=== PATIENT | male | born 1955 | race African-American/Black ===

== ENCOUNTER 2019-04-15 13:50 | Outpatient (CLI) | payer MEDICARE, BC, SELFPAY ==
--- NOTE | ~2019-04-15 | XR_ITS ---
EXAMINATION: XR chest 2V EXAM DATE: 04/15/2019 14:11 INDICATION: Cough, chest pain, fever. TECHNIQUE: Frontal and lateral projections of the chest obtained and reviewed. Comparison is made to prior examination from 03/08/2018. FINDINGS: Minimal linear scarring and change. The lungs are otherwise clear. There are no pleural e ffusions. The cardiomediastinal silhouette is within normal limits. There is no pneumothorax suspec michael. The bones and soft tissues are unremarkable. IMPRESSION: No acute cardiopulmonary findings. Reviewed, dictated and finalized at location A. INE OPERATOR PACKAGING
[2019-04-15 14:04] LABS: Hematocrit 45.6 % (37.0-46.0); Mean Corpuscular HGB Conc 32.9 g/dL (32.0-36.0); Mean Corpuscular Hemoglobin 29.6 pg (27.0-31.0); Mean Corpuscular Volume 89.9 fL (78.0-102.0); Mean Platelet Volume 10.2 fl (8.7-11.0); Platelet Count Result 149 K/mm3 (150-420); Red Blood Count 5.07 M/mm3 (4.70-6.10); Red Cell Distribution Width 13.7 % (11.6-14.4); White Blood Count 3.1 K/mm3 (4.8-10.8)
[2019-04-15 14:20] LABS: Alanine Aminotransferase 50 U/L (16-63); Alkaline Phosphatase 73 U/L (46-116); Anion Gap 12.8 mmol/L (7-16); Aspartate Amino Transferase 41 U/L (15-37); Bilirubin,Total 0.6 mg/dL (0.00-1.00); Blood Urea Nitrogen 11 mg/dL (7-18); Calcium 9.3 mg/dL (8.5-10.1); Carbon Dioxide 32 mmol/L (21-32); Chloride 103 mmol/L (98-108); Estimated Glomerular Filt Rate > 60; Glucose 92 mg/dL (70-99); Osmolality Calculated 297 mOsm/kg (285-295); Potassium 3.8 mmol/L (3.5-5.1); Sodium 144 mmol/L (136-145); Total Protein 8.4 g/dL (6.4-8.2)
[2019-04-15 14:22] LABS: Band Neutrophils Percent 0 % (0-6); Lymphocytes Absolute Manual 1.24 K/mm3 (1.1-4.5); Lymphocytes Percent Manual 40 % (18-44); Monocytes Percent Manual 13 % (3-9); Neutrophils Absolute Manual 1.45 K/mm3 (1.3-6.7); Neutrophils Percent Manual 47 % (46-73); Total Cells Counted 100
[2019-04-15 14:23] LABS: Basophils Percent Manual 0 % (0-1); Eosinophils Percent Manual 0 % (1-6)
[2019-04-15 14:25] LABS: Influenza Control Valid (Valid)
[2019-04-15 14:32] LABS: Platelet Estimate Adequate (Adequate)
== END 2019-04-15 13:51 | disposition home or self-care (01) ==
LOC: CHSLAB 13:54
PROVIDERS: PCP Internal Medicine; Visit Provider Internal Medicine
DX: R05 Cough (principal); R50.9 Fever, unspecified
CPT/HCPCS: 71046; 80053; 85025; 87081; 87804; 87880

== ENCOUNTER 2019-07-19 07:21 | Emergency (ER) | payer MEDICARE, BC, SELFPAY ==
[2019-07-19 07:26] VITALS: BP 120/54; PULSE 78; RESP 16; TEMP 37.8; O2SAT 96
--- NOTE | 2019-07-19 08:23 | ED.GENADULT ---
HPI - General Adult General Chief complaint: Urogenital-Male Stated complaint: uti History of Present Illness HPI narrative: Juan Pablo is a 64M with a PMH of HTN, HLD, and BPH that presented to the ED with painful urination and fevers. For 3-4 days he has had dysuria, increased urinary frequency, back pain, nausea and fevers up to 101 and fatigue. He was going much more frequently until this morning when it seems he cannot go any more. Denes CP, SOB, vomiting, syncope, diarrhea and tenesmus. Related Data Home Medications Medication Instructions Recorded Confirmed amlodipine See Rx Instructions .ROUTE .COMPLEX 07/19/19 07/19/19 amoxicillin-pot clavulanate See Rx Instructions .ROUTE .COMPLEX 07/19/19 07/19/19 aspirin [Adult Low Dose Aspirin] 81 mg PO DAILY 07/19/19 07/19/19 rosuvastatin See Rx Instructions .ROUTE .COMPLEX 07/19/19 07/19/19 tadalafil [Cialis] See Rx Instructions .ROUTE .COMPLEX 07/19/19 07/19/19 tamsulosin See Rx Instructions .ROUTE .COMPLEX 07/19/19 07/19/19 Allergies Allergy/AdvReac Type Severity Reaction Status Date / Time No Known Allergies Allergy Verified 07/19/19 08:50 Review of Systems Constitutional: Constitutional: Reports chills, Reports fatigue and Reports fever(s) Eyes: Eyes: Reports no additional eye complaints ENT: Reports system reviewed and no additional complaints, except as documented Cardiovascular: Cardiovascular: Reports no additional cardiovascular complaints Respiratory: Respiratory: Reports no additional respiratory complaints Gastrointestinal: Gastrointestinal: Denies abdominal pain, Reports nausea and Denies vomiting Genitourinary: Genitourinary: Reports as per HPI Musculoskeletal: Musculoskeletal: Reports no additional musculoskeletal complaints Integumentary/Breasts: Skin/Breast: Reports system reviewed and no additional complaints, except as docu Neurologic: Reports system reviewed and no additional complaints, except as documented Psychiatric: Psychiatric: Reports no additional psychiatric complaints Exam Const: General: no acute distress and alert Orientation/consciousness: patient oriented x3 Limitations: No altered mental status HENMT: Other: normocephalic, atraumatic Eyes: Pupils: Equal, round and reactive pupils present EOM: EOMs intact bilaterally Resp: Effort & Inspection: normal respiratory effort Auscultation: clear to auscultation bilaterally Cardio: Rate: regular rate Rhythm: regular rhythm Heart sounds: no murmurs GI: GI Palp: Yes Soft to palpation and No Tenderness to palpation present (GI) : General: Yes no CVA tenderness Other: no suprapubic tenderness Skin: General skin exam: normal color Neuro: General: patient oriented x3 and moves all extremities Extrem: General: normal to inspection Psych: Mental Status: mental status grossly normal Course Course Emergency Course: Ray was seen and evaluated. Labs were ordered as well as a bladder scan. UA was consistent with UTI and CBC showed leukocytosis so he was given ciprofloxacin to treat for UTI or acute prostatitis. He was educated, given return precautions, and discharged with a script for cipro. He was told to stop the Augmentin. Vital Signs Vital signs: Vital Signs Temperature 37.8 C H 07/19/19 07:26 Pulse Rate 78 07/19/19 07:26 Respiratory Rate 16 07/19/19 07:26 Blood Pressure 120/54 L 07/19/19 07:26 Pulse Oximetry 96 07/19/19 07:26 Temperature 37.2 C 07/19/19 09:32 Pulse Rate 88 07/19/19 09:32 Respiratory Rate 16 07/19/19 09:32 Blood Pressure 111/55 L 07/19/19 09:32 Pulse Oximetry 96 07/19/19 07:26 Medical Decision Making Vital Signs Vital Signs: Vital Signs Temperature 37.8 C H 07/19/19 07:26 Pulse Rate 78 07/19/19 07:26 Respiratory Rate 16 07/19/19 07:26 Blood Pressure 120/54 L 07/19/19 07:26 Pulse Oximetry 96 07/19/19 07:26 Temperature 37.2 C 07/19/19 09:32 Pulse Rate 88 07/19/19 09:32 Respirat
[2019-07-19 08:35] LABS: Add Urine Microscopic? YES; Appearance Urine Sl Cloudy (Clear); Bilirubin Urine 1+ (Negative); Blood Urine 2+ (Negative); Color Urine Amber (Yellow); Glucose Urine UA Negative (Negative); Ketones Urine Negative (Negative); Leukocyte Esterase Ur 2+ (Negative); Nitrate Urine Negative (Negative); Protein Urine Trace (Negative); Specific Grav Ur 1.015 (1.010-1.020)
[2019-07-19 08:37] LABS: Basophils Absolute Auto 0.02 K/mm3 (0.00-0.10); Basophils Percent Auto 0.1 % (0.0-1.0); Eosinophils Absolute Auto 0.01 K/mm3 (0.02-0.50); Eosinophils Percent Auto 0.1 % (1.0-6.0); Hemoglobin 14.7 g/dL (12.4-15.3); Immature Granulocyte Absolute 0.12 K/mm3 (0.00-0.00); Immature Granulocyte Percent A 0.9 % (0.0-0.0); Lymphocytes Absolute Auto 1.65 K/mm3 (1.10-4.50); Lymphocytes Percent Auto 11.9 % (18.0-42.0); Mean Corpuscular HGB Conc 33.4 g/dL (32.0-36.0); Mean Corpuscular Hemoglobin 29.8 pg (27.0-31.0); Mean Corpuscular Volume 89.2 fL (78.0-102.0); Mean Platelet Volume 10.3 fl (8.7-11.0); Monocytes Absolute Auto 1.11 K/mm3 (0.10-0.90); Platelet Count Result 156 K/mm3 (150-420); Red Blood Count 4.93 M/mm3 (4.70-6.10); Red Cell Distribution Width 14.1 % (11.6-14.4); White Blood Count 13.9 K/mm3 (4.8-10.8)
[2019-07-19 08:47] LABS: Bacteria Urine 3+ /hpf; Squamous Epithelial Cell Urine Few /hpf (Few); WBC Urine 51-75 /hpf (0-3)
[2019-07-19 08:48] LABS: Alanine Aminotransferase 42 U/L (16-63); Albumin Level 3.6 g/dL (3.4-5.0); Alkaline Phosphatase 80 U/L (46-116); Anion Gap 14.5 mmol/L (7-16); Aspartate Amino Transferase 28 U/L (15-37); Bilirubin,Total 1.9 mg/dL (0.00-1.00); Blood Urea Nitrogen 9 mg/dL (7-18); Carbon Dioxide 27 mmol/L (21-32); Chloride 102 mmol/L (98-108); Estimated CRCL calculation 62 ml/min; Estimated Glomerular Filt Rate > 60; Glucose 120 mg/dL (70-99); Osmolality Calculated 289 mOsm/kg (285-295); Potassium 3.5 mmol/L (3.5-5.1); Sodium 140 mmol/L (136-145); Total Protein 7.8 g/dL (6.4-8.2)
[2019-07-19 09:32] VITALS: BP 111/55; PULSE 88; RESP 16; TEMP 37.2
[2019-07-22 08:56] LABS: Prostate Specific Antigen 14.4 ng/mL (< OR = 4.0)
== END 2019-07-19 09:33 | disposition home or self-care (01) ==
PROVIDERS: Emergency Provider Family Medicine; PCP Internal Medicine
DX: N39.0 Urinary tract infection, site not specified (principal); I10 Essential (primary) hypertension; E78.5 Hyperlipidemia, unspecified; N40.0 Benign prostatic hyperplasia without lower urinary tract symptoms; R11.0 Nausea; R50.9 Fever, unspecified
CPT/HCPCS: 36415; 80053; 81001; 84153; 85025; 87040; 87086; 99283

== ENCOUNTER 2019-08-01 08:13 | Outpatient (CLI) | payer MEDICARE, SELFPAY ==
[2019-08-01 08:25] LABS: Basophils Absolute Auto 0.03 K/mm3 (0.00-0.10); Basophils Percent Auto 0.4 % (0.0-1.0); Eosinophils Absolute Auto 0.06 K/mm3 (0.02-0.50); Eosinophils Percent Auto 0.8 % (1.0-6.0); Hematocrit 43.4 % (37.0-46.0); Hemoglobin 14.2 g/dL (12.4-15.3); Immature Granulocyte Absolute 0.04 K/mm3 (0.00-0.00); Immature Granulocyte Percent A 0.5 % (0.0-0.0); Lymphocytes Absolute Auto 2.33 K/mm3 (1.10-4.50); Lymphocytes Percent Auto 30.6 % (18.0-42.0); Mean Corpuscular HGB Conc 32.7 g/dL (32.0-36.0); Mean Corpuscular Hemoglobin 28.8 pg (27.0-31.0); Mean Platelet Volume 9.2 fl (8.7-11.0); Monocytes Absolute Auto 0.56 K/mm3 (0.10-0.90); Monocytes Percent Auto 7.3 % (2.0-11.0); Neutrophils Absolute Auto 4.6 K/mm3 (1.7-7.2); Neutrophils Percent Auto 60.4 % (50.0-70.0); Platelet Count Result 327 K/mm3 (150-420); Red Blood Count 4.93 M/mm3 (4.70-6.10); Red Cell Distribution Width 14.6 % (11.6-14.4); White Blood Count 7.6 K/mm3 (4.8-10.8)
[2019-08-01 08:34] LABS: Add Urine Microscopic? NO; Appearance Urine Clear (Clear); Bilirubin Urine Negative (Negative); Blood Urine Negative (Negative); Color Urine Yellow (Yellow); Glucose Urine UA Negative (Negative); Ketones Urine Negative (Negative); Leukocyte Esterase Ur Negative (Negative); Nitrate Urine Negative (Negative); Protein Urine Negative (Negative); Specific Grav Ur >= 1.030 (1.010-1.020); Urobilinogen Urine 0.2 mg/dL (0.2-1.0); pH Urine 5.5 (5.0-8.0)
[2019-08-01 09:36] LABS: Anion Gap 9.1 mmol/L (7-16); Blood Urea Nitrogen 15 mg/dL (7-18); Calcium 9.1 mg/dL (8.5-10.1); Carbon Dioxide 30 mmol/L (21-32); Chloride 105 mmol/L (98-108); Estimated Glomerular Filt Rate > 60; Glucose 97 mg/dL (70-99); Osmolality Calculated 290 mOsm/kg (285-295); Potassium 4.1 mmol/L (3.5-5.1); Prostate Specific Antigen 3.6 ng/mL (< OR = 4.0); Sodium 140 mmol/L (136-145)
== END 2019-08-01 08:14 | disposition home or self-care (01) ==
LOC: CHSLAB 08:15
PROVIDERS: PCP Internal Medicine; Visit Provider Internal Medicine
DX: N41.9 Inflammatory disease of prostate, unspecified (principal)
CPT/HCPCS: 36415; 80048; 81003; 84153; 85025; 87086

== ENCOUNTER 2020-03-30 13:42 | Outpatient (CLI) | payer MEDICARE, BC, SELFPAY ==
--- NOTE | ~2020-03-30 | XR_ITS ---
EXAMINATION: XR lg joint inject/asp add DATE: 03/30/2020 15:16 INDICATION: Left shoulder pain. TECHNIQUE: A time-out was performed to verify the patient's name, date of , and procedure to b e performed. The procedure including the risks, benefits, and alternatives was discussed with the pat ient. Risks discussed included bleeding and infection. The patient understood the risks and agreed to proceed. The skin overlying the left acromioclavicular joint was prepped and draped in usual steril e fashion. Anesthetic was administered with 1% lidocaine subcutaneously. A 23 G needle was advanced under fluoroscopic guidance into the joint. Subsequently, injectate consisting of 0.5 mL 1% lidocain e and 1.0 mL 40 mg/mL Kenalog was instilled. The needle was removed and the entry site was cleaned a nd dressed. There were no immediate complications. Fluoroscopy exposure time was 0.1 minutes. The to gayatri number of images was 1. FINDINGS: Real-time fluoroscopy demonstrates the needle in the left acromioclavicular joint. Patient' s pain prior to procedure:09/04. Patient's pain following the procedure: 07/05. IMPRESSION: 1. Fluoroscopy guided left acromioclavicular joint injection of local anesthetic and steroid with dec rease in the patient's presenting pain. Reviewed, dictated and finalized at location A. R PRESS OPERATOR IMPRESSION: 1. Fluoroscopy guided left acromioclavicular joint injection of local anestheti c and steroid with decrease in the patient's presenting pain.
--- NOTE | ~2020-03-30 | XR_ITS ---
EXAMINATION: XR lg joint inject/asp w image DATE: 03/30/2020 15:14 INDICATION: Right shoulder pain. TECHNIQUE: A time-out was performed to verify the patient's name, date of , and procedure to b e performed. The procedure including the risks, benefits, and alternatives was discussed with the pat ient. Risks discussed included bleeding and infection. The patient understood the risks and agreed to proceed. The skin overlying the right acromioclavicular joint was prepped and draped in usual steri le fashion. Anesthetic was administered with 1% lidocaine subcutaneously. A 23 G needle was advance d under fluoroscopic guidance into the joint. Subsequently, injectate consisting of 0.5 mL 1% lidoca ine and 1.0 mL 40 mg/mL Kenalog was instilled. The needle was removed and the entry site was cleaned and dressed. There were no immediate complications. Fluoroscopy exposure time was 0.1 minutes. The total number of images was 1. FINDINGS: Real-time fluoroscopy demonstrates the needle in the right acromioclavicular joint. Patient 's pain prior to procedure:09/04. Patient's pain following the procedure: 07/05. IMPRESSION: 1. Right acromioclavicular joint injection of local anesthetic and steroid with decrease in the patie nt's presenting pain. Reviewed, dictated and finalized at location A. PAPER SCRAPER IMPRESSION: 1. Right acromioclavicular joint injection of local anesthetic and steroid with decrease in the patient's presenting pain.
== END 2020-03-30 13:43 | disposition home or self-care (01) ==
PROVIDERS: Family Provider Internal Medicine; PCP Internal Medicine; Visit Provider Internal Medicine
DX: M25.512 Pain in left shoulder (principal); M25.511 Pain in right shoulder
CPT/HCPCS: 20610; 77002; J3301

== ENCOUNTER 2020-04-12 07:41 | Outpatient (CLI) | payer MEDICARE, BC, SELFPAY ==
--- NOTE | ~2020-04-12 | US_ITS ---
EXAMINATION: US aorta [facility] DATE: 04/12/2020 08:08 INDICATION: Abdominal aortic aneurysm TECHNIQUE: Grayscale, color Doppler, and pulsed Doppler images of the aorta and common iliac arteries were obtained. COMPARISON: CT, 04/19/2018 FINDINGS: Maximum vascular dimensions are as follows: Proximal aorta: 2.5 cm Mid aorta: 2.5 cm Distal aorta: 2.2 cm Right common iliac artery: 1.2 cm Left common iliac artery: 1.3 cm There is no evidence of abdominal aortic aneurysm. 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 No sonographic evidence of abdominal aortic aneurysm. Reviewed, dictated and finalized at location A. ENER HELPER
== END 2020-04-12 07:42 | disposition home or self-care (01) ==
LOC: CHSIMG 07:44
PROVIDERS: PCP Internal Medicine; Visit Provider Internal Medicine Cardiovascular Disease
DX: Z13.6 Encounter for screening for cardiovascular disorders (principal)
CPT/HCPCS: 76706

== ENCOUNTER 2020-05-17 11:37 | Outpatient (CLI) | payer MEDICARE, BC, SELFPAY ==
--- NOTE | ~2020-05-17 | XR_ITS ---
XR elbow LT min 3V DATE: 05/17/2020 12:02 INDICATION: Posterior elbow pain for one day. No injury. TECHNIQUE: 4 views COMPARISON: None FINDINGS: There is minimal dorsal spurring of the olecranon process. There is spurring of the coronoi d process. No fracture or dislocation or joint effusion. No periosteal reaction or bone destruction. IMPRESSION: Minimal dorsal spurring of the olecranon process Coronoid process spurring No fracture or dislocation or bone destruction or joint effusion Reviewed, dictated and finalized at location B.
[2020-05-17 11:48] LABS: Basophils Absolute Auto 0.03 K/mm3 (0.00-0.10); Basophils Percent Auto 0.5 % (0.0-1.0); Eosinophils Absolute Auto 0.04 K/mm3 (0.02-0.50); Eosinophils Percent Auto 0.6 % (1.0-6.0); Hemoglobin 14.8 g/dL (12.4-15.3); Immature Granulocyte Absolute 0.02 K/mm3 (0.00-0.00); Immature Granulocyte Percent A 0.3 % (0.0-0.0); Lymphocytes Absolute Auto 2.66 K/mm3 (1.10-4.50); Mean Corpuscular HGB Conc 32.9 g/dL (32.0-36.0); Mean Corpuscular Hemoglobin 29.8 pg (27.0-31.0); Mean Corpuscular Volume 90.7 fL (78.0-102.0); Mean Platelet Volume 9.9 fl (8.7-11.0); Monocytes Absolute Auto 0.51 K/mm3 (0.10-0.90); Monocytes Percent Auto 7.9 % (2.0-11.0); Neutrophils Absolute Auto 3.2 K/mm3 (1.7-7.2); Neutrophils Percent Auto 49.7 % (50.0-70.0); Platelet Count Result 187 K/mm3 (150-420); Red Blood Count 4.96 M/mm3 (4.70-6.10); Red Cell Distribution Width 13.6 % (11.6-14.4); White Blood Count 6.5 K/mm3 (4.8-10.8)
[2020-05-17 13:06] LABS: Alanine Aminotransferase 46 U/L (16-63); Albumin Level 4.2 g/dL (3.4-5.0); Alkaline Phosphatase 77 U/L (46-116); Anion Gap 9 mmol/L (8-16); Aspartate Amino Transferase 39 U/L (15-37); Bilirubin,Total 1.3 mg/dL (0.00-1.00); Blood Urea Nitrogen 16 mg/dL (7-18); Calcium 9.3 mg/dL (8.5-10.1); Carbon Dioxide 31 mmol/L (21-32); Chloride 102 mmol/L (98-108); Estimated Glomerular Filt Rate > 60; Glucose 88 mg/dL (70-99); Osmolality Calculated 294 mOsm/kg (285-295); Potassium 4.5 mmol/L (3.5-5.1); Sodium 142 mmol/L (136-145); Total Protein 7.6 g/dL (6.4-8.2)
[2020-05-17 14:29] LABS: CRP < 0.5 mg/dL (0.0-0.9)
[2020-05-19 20:03] LABS: Hepatitis A Antibody IgM Nonreactive; Hepatitis B Core Antibody Nonreactive (Nonreactive); Hepatitis B Surface Antigen Nonreactive (Nonreactive); Hepatitis C Signal to Cutoff 0.01 ratio (<1.00); Hepatitis C Virus Antibody Nonreactive (Nonreactive)
== END 2020-05-17 11:38 | disposition home or self-care (01) ==
LOC: CHSLAB 11:38
PROVIDERS: PCP Internal Medicine; Visit Provider Nurse Practitioner Family
DX: M25.522 Pain in left elbow (principal); R94.5 Abnormal results of liver function studies
CPT/HCPCS: 36415; 73080; 80053; 80074; 84550; 85025; 86140

== ENCOUNTER 2020-05-24 08:12 | Outpatient (CLI) | payer MEDICARE, BC, SELFPAY ==
--- NOTE | ~2020-05-24 | US_ITS ---
US right upper quadrant INDICATION: Elevated liver enzymes PROCEDURE: Realtime right upper abdominal ultrasound. COMPARISON: CT dated 05/17/2018 FINDINGS: The pancreas is unremarkable, although not well visualized. There is a 1 cm cyst of the ri ght hepatic lobe. No solid masses. There is normal directional flow in the portal vein. The gallbladder is normal without stones, gallbladder wall thickening or pericholecystic fluid. Comm on bile duct measures 3 mm. No sonographic Ying's sign. IMPRESSION: 1: Liver cyst. Otherwise, unremarkable limited abdominal ultrasound. Reviewed, dictated and finalized at location B.
[2020-05-24 08:47] LABS: Hemoglobin A1C 5.8 % (<5.7)
[2020-05-24 09:01] LABS: Appearance Urine Clear (Clear); Bilirubin Urine Negative (Negative); Color Urine Yellow (Yellow); Glucose Urine UA Negative (Negative); Ketones Urine Negative (Negative); Leukocyte Esterase Ur Negative (Negative); Nitrate Urine Negative (Negative); Protein Urine Negative (Negative); pH Urine 6.5 (5.0-8.0)
[2020-05-24 09:14] LABS: Add Urine Microscopic? YES; Bacteria Urine None seen /hpf; Blood Urine Trace-Intact (Negative); Squamous Epithelial Cell Urine Rare /hpf (Few); WBC Urine None seen /hpf (0-3)
[2020-05-24 10:07] LABS: Creatinine Urine 193.63 mg/dL (40-278); MALB Creatinine Ratio 32.7 mg/g (0-30); Microalbumin Urine Random 63.5 mg/L
[2020-05-24 10:21] LABS: Alanine Aminotransferase 47 U/L (16-63); Alkaline Phosphatase 75 U/L (46-116); Anion Gap 6 mmol/L (8-16); Aspartate Amino Transferase 34 U/L (15-37); Blood Urea Nitrogen 12 mg/dL (7-18); Carbon Dioxide 31 mmol/L (21-32); Chloride 103 mmol/L (98-108); Cholesterol 140 mg/dL (0-200); Estimated Glomerular Filt Rate > 60; Glucose 98 mg/dL (70-99); HDL Direct 52 mg/dL (40-60); LDL Cholesterol Calculated 78 mg/dL (<130); Osmolality Calculated 289 mOsm/kg (285-295); Potassium 4.1 mmol/L (3.5-5.1); Sodium 140 mmol/L (136-145); Total Protein 7.3 g/dL (6.4-8.2); Triglycerides 52 mg/dL (0-150)
[2020-05-24 10:22] LABS: Creatine Kinase 1167 U/L (39-308)
== END 2020-05-24 08:13 | disposition home or self-care (01) ==
LOC: CHSIMG 08:15
PROVIDERS: PCP Internal Medicine; Visit Provider Nurse Practitioner Family
DX: R94.5 Abnormal results of liver function studies (principal); R73.01 Impaired fasting glucose; E78.2 Mixed hyperlipidemia; I10 Essential (primary) hypertension; R31.9 Hematuria, unspecified
CPT/HCPCS: 36415; 76705; 80053; 80061; 81001; 82043; 82550; 83036; 87086

== ENCOUNTER 2020-10-19 14:43 | Outpatient (CLI) | payer MEDICARE, BC, SELFPAY ==
--- NOTE | ~2020-10-19 | US_ITS ---
EXAMINATION: US venous doppler LE RT EXAM DATE: 10/19/2020 15:06 INDICATION: Right leg edema. TECHNIQUE: Multiple grayscale, color flow and Doppler images of the right lower extremity deep venous system were obtained and reviewed. Comparison is made to prior examination from 09/03/2017. FINDINGS: The right common femoral, femoral and profunda veins demonstrate normal color flow, respira tory variation, augmentation and compressibility. Compressibility, color flow confirmed within the r ight popliteal, posterior tibial, peroneal, and greater saphenous veins. IMPRESSION: 1. No right lower extremity deep venous thrombosis. Reviewed, dictated and finalized at location A.
== END 2020-10-19 14:44 | disposition home or self-care (01) ==
LOC: CHSIMG 14:45
PROVIDERS: PCP Internal Medicine; Visit Provider Internal Medicine
DX: R60.9 Edema, unspecified (principal)
CPT/HCPCS: 93971

== ENCOUNTER 2020-11-15 07:21 | Outpatient (CLI) | payer MEDICARE, BC, SELFPAY ==
--- NOTE | 2020-11-15 09:00 | EST_ITS ---
Patient Info Name: Juan Pablo Claudio Age: 65 years : 1955 Gender: Male Ht: 77 in Wt: 245 lbs BSA: 2.47 m2 HR: 52 bpm BP: 135 / 90 mmHg Heart Rhythm: Bradycardia Technical Quality: Excellent Exam Date: 11/15/2020 8:54 AM Exam Location: [facility] Patient Status: Outpatient Admit Date: 11/15/2020 Staff Ordering Physician: Dean, Aura Kay APRN Attending Provider: Dean, Aura Kay APRN Exercise Technologist: Nadine Quinonez CRT Exercise Physician: Karyn Ward CEP Exam Type: CA stress jhoana w NM Study Info Indications SOB - Fatigue - CP - A nuclear stress test was performed. History/Risk Factors Hypertension: Yes Dyslipidemia: Yes Tobacco Use: Current - Every Day Dialysis: None History/Risk Factors Previous ischemia noted. Current Smoker. Hypertension. Dyslipidemia. Summary 1. 1. Negative Lexiscan stress test for ischemic ST changes by ECG criteria. 2. 2. Stable hemodynamics throughout the test. 3. 3. Nuclear scan to follow and will be reported separately. Please correlate with it. Protocol: LEXISCAN Stress ECG Details Stage: REST Duration (min): 2 min : 33 sec HR (bpm): 53 SBP (mmHg): 135 DBP (mmHg): 90 Stage: REST Duration (min): 6 min : 5 sec HR (bpm): 52 SBP (mmHg): 135 DBP (mmHg): 90 Stage: STAGE 1 Duration (min): 0 min : 13 sec HR (bpm): 53 SBP (mmHg): 135 DBP (mmHg): 90 Stage: RECOVERY Duration (min): 0 min : 46 sec HR (bpm): 60 SBP (mmHg): 135 DBP (mmHg): 90 Stage: RECOVERY Duration (min): 1 min : 46 sec HR (bpm): 66 SBP (mmHg): 135 DBP (mmHg): 90 Stage: RECOVERY Duration (min): 2 min : 46 sec HR (bpm): 66 SBP (mmHg): 129 DBP (mmHg): 68 Stage: RECOVERY Duration (min): 3 min : 46 sec HR (bpm): 62 SBP (mmHg): 129 DBP (mmHg): 68 Stage: RECOVERY Duration (min): 4 min : 46 sec HR (bpm): 62 SBP (mmHg): 131 DBP (mmHg): 79 Stage: RECOVERY Duration (min): 5 min : 46 sec HR (bpm): 61 SBP (mmHg): 131 DBP (mmHg): 79 Stage: RECOVERY Duration (min): 6 min : 7 sec HR (bpm): 59 SBP (mmHg): 128 DBP (mmHg): 78 Rest HR: 52 bpm Peak HR: 69 bpm Rest Sys BP: 135 mmHg Peak Sys BP: 131 mmHg Max Pred HR: 153 bpm % Max Pred HR: 45 % Target HR: 130 bpm Max RPP: 9,039 bpm*mmHg Termination Reason: Completed Protocol Cardiac Symptoms: None Total Time: 0 min : 13 sec Rest Gillis BP: 90 mmHg Peak Gillis BP: 79 mmHg Total Dose: 0.4 mg Resting ECG Sinus rhythm with first degree AV block, borderline T wave abnormality in high lateral leads. Stress ECG No ST changes. Arrhythmias None. Report Signatures
--- NOTE | 2020-11-15 13:08 | WPDCARIOSTRE ---
Nuclear Stress Test INDICATIONS Indications: Dyspnea PROCEDURE Procedure Performed: Myocardial Perf Spect-Multi Procedure: Patient underwent a lexiscan stress test and immediately after was injected with 30.0 mCi of cardiolyte. Multiple tomographic images are obtained. These are of good quality. There is no evidence of decrease perfusion with stress imaging. A separate resting images were obtained after patient was injected with 10.4 mCi of cardiolyte. Multiple tomographic images were obtained. These are of good quality. There is no evidence of decrease perfusion with rest imaging. CONCLUSION Conclusion: 1. Normal myocardial perfusion imaging demonstrating no perfusion defects with stress or rest imaging. 2. Left ventriculogram demonstrates normal measured ejection fraction of 54%. 3. The left ventricle is moderately dilated at 154 ml. No wall motion abnormalities. 4. TID score is normal at 1.17.
== END 2020-11-15 07:22 | disposition home or self-care (01) ==
LOC: CHSIMG 07:22
PROVIDERS: PCP Internal Medicine; Visit Provider Internal Medicine Cardiovascular Disease
DX: I25.10 Atherosclerotic heart disease of native coronary artery without angina pectoris (principal); R06.02 Shortness of breath; R53.83 Other fatigue
CPT/HCPCS: 78452; 93017; A9502; J2785

== ENCOUNTER 2020-11-30 16:15 | Outpatient (CLI) | payer MEDICARE, BC, SELFPAY ==
--- NOTE | ~2020-11-30 | XR_ITS ---
EXAMINATION: XR chest 2V DATE: 11/30/2020 17:06 INDICATION: Cough. Dyspnea. TECHNIQUE: Frontal and lateral views of the chest were obtained on 4 radiographs. COMPARISON: Chest 2 views 04/15/2019 FINDINGS: There is mild atelectasis versus scarring in the lower lung zones. No pleural effusion or p neumothorax. The heart size is normal. IMPRESSION: 1. Mild atelectasis versus scarring in the lower lung zones. Reviewed, dictated and finalized at location A.
[2020-11-30 16:36] LABS: Basophils Absolute Auto 0.02 K/mm3 (0.00-0.10); Basophils Percent Auto 0.3 % (0.0-1.0); Eosinophils Absolute Auto 0.06 K/mm3 (0.02-0.50); Eosinophils Percent Auto 0.9 % (1.0-6.0); Hematocrit 43.7 % (37.0-46.0); Hemoglobin 14.4 g/dL (12.4-15.3); Immature Granulocyte Absolute 0.01 K/mm3 (0.00-0.00); Immature Granulocyte Percent A 0.2 % (0.0-0.0); Lymphocytes Absolute Auto 2.65 K/mm3 (1.10-4.50); Lymphocytes Percent Auto 40.5 % (18.0-42.0); Mean Corpuscular Hemoglobin 29.6 pg (27.0-31.0); Mean Corpuscular Volume 89.9 fL (78.0-102.0); Mean Platelet Volume 9.4 fl (8.7-11.0); Monocytes Absolute Auto 0.48 K/mm3 (0.10-0.90); Monocytes Percent Auto 7.3 % (2.0-11.0); Neutrophils Absolute Auto 3.3 K/mm3 (1.7-7.2); Neutrophils Percent Auto 50.8 % (50.0-70.0); Platelet Count Result 194 K/mm3 (150-420); Red Blood Count 4.86 M/mm3 (4.70-6.10); Red Cell Distribution Width 13.6 % (11.6-14.4); White Blood Count 6.6 K/mm3 (4.8-10.8)
[2020-11-30 16:52] LABS: Alanine Aminotransferase 45 U/L (16-63); Alkaline Phosphatase 76 U/L (46-116); Anion Gap 8 mmol/L (8-16); Aspartate Amino Transferase 33 U/L (15-37); Blood Urea Nitrogen 11 mg/dL (7-18); Calcium 9.2 mg/dL (8.5-10.1); Carbon Dioxide 32 mmol/L (21-32); Chloride 105 mmol/L (98-108); Estimated Glomerular Filt Rate > 60; Glucose 94 mg/dL (70-99); NT Pro B Type Natriuretic Pept 30 pg/mL (0-125); Osmolality Calculated 299 mOsm/kg (285-295); Potassium 3.8 mmol/L (3.5-5.1); Sodium 145 mmol/L (136-145); Total Protein 7.5 g/dL (6.4-8.2)
== END 2020-11-30 16:16 | disposition home or self-care (01) ==
LOC: CHSLAB 16:17
PROVIDERS: PCP Internal Medicine; Visit Provider Internal Medicine
DX: R05.9 Cough, unspecified (principal); R06.00 Dyspnea, unspecified
CPT/HCPCS: 36415; 71046; 80053; 83880; 85025; 85380

== ENCOUNTER 2020-12-15 06:51 | Outpatient (CLI) | payer MEDICARE, BC, SELFPAY ==
--- NOTE | ~2020-12-15 | MR_ITS ---
EXAMINATION: MR femur RT wo con DATE: 12/15/2020 08:01 INDICATION: Acute right hamstring tear with one week of posterior right leg pain TECHNIQUE: Magnetic resonance imaging (MRI) of the right thigh/femur was performed without intravenou s contrast. Sequences included axial, sagittal and coronal T1-weighted FSE and fluid sensitive FSE ST IR. The contralateral left thigh is included on the coronal images. COMPARISON: None. FINDINGS: There is epimysial and feathery intramuscular edema associated with a partial tear within the distal right semimembranosus muscle. The region of edema extends over approximately 15 cm craniocaudal dista nce. There is mild architectural distortion of some of the muscle fibers in this region but no eviden t retracted tear margin or homogeneous fluid signal intensity tear defect appreciated. The region of architectural distortion involves a relatively small portion of the cross-sectional area of the muscl e at this level. Remaining musculature of the right thigh appears normal and symmetric with the contr alateral left thigh. Mild tendinopathy without discrete tear at the distal right gluteus medius. At l east mild osteoarthritis at the partially visualized right hip with no right hip joint effusion. The right knee joint is excluded from the itspz-sy-ydce. Normal bone marrow signal throughout. No fractur e or pathologic marrow replacing process. No pathologically enlarged lymphadenopathy in the right rajendra in or visualized inferior right hemipelvis. IMPRESSION: 1. Moderate grade strain/partial tear of the distal right semimembranosus muscle. Reviewed, dictated and finalized at location A. IMPRESSION: 1. Moderate grade strain/partial tear of the distal right semimembranosus muscl e.
== END 2020-12-15 06:52 | disposition home or self-care (01) ==
LOC: CHSIMG 06:53
PROVIDERS: PCP Internal Medicine; Visit Provider Internal Medicine
DX: S76.811A Strain of other specified muscles, fascia and tendons at thigh level, right thigh, initial encounter (principal)
CPT/HCPCS: 73718

== ENCOUNTER 2021-01-17 09:35 | Outpatient (CLI) | payer MEDICARE, BC, SELFPAY ==
--- NOTE | ~2021-01-17 | CT_ITS ---
EXAMINATION:CT lung screening DATE: 01/17/2021 10:20 INDICATION: Personal history of nicotine dependence. Current smoker with 48 pack year history. TECHNIQUE: Computed tomography (CT) of the chest was performed without intravenous contrast. Automate d exposure control and iterative reconstruction technique were employed. The dose-length product (DLP ) was 204.64 mGy-cm. COMPARISON: Chest CT 04/11/2018 FINDINGS: There is mild emphysema. There is mild scarring in paraspinal right lower lobe. Again seen is a 5 mm nodule at left lung apex. There is a chronic 3 mm nodule in right upper lobe. Again seen is a 5 mm nodule at minor fissure. There is mild atelectasis bilaterally. No pleural effusion. The hear t size is normal. There are coronary artery calcifications. No pericardial effusion. There is bilater al gynecomastia. There is an 8 mm cyst in the liver. There is moderate thoracic spondylosis. IMPRESSION: 1. Lung-RADS category 2: Benign appearance or behavior. Continue annual screening with noncontrast lo w-dose chest CT in 12 months. Reviewed, dictated and finalized at location B. WIRE FABRIC MACHINE OPERATOR IMPRESSION: 1. Lung-RADS category 2: Benign appearance or behavior. Continue annual screeni ng with noncontrast low-dose chest CT in 12 months.
== END 2021-01-17 09:36 | disposition home or self-care (01) ==
PROVIDERS: PCP Internal Medicine; Visit Provider Internal Medicine
DX: Z12.2 Encounter for screening for malignant neoplasm of respiratory organs (principal); Z87.891 Personal history of nicotine dependence
CPT/HCPCS: 71271

== ENCOUNTER 2021-09-05 10:17 | Emergency (ER) | payer MEDICARE, BC, SELFPAY ==
--- NOTE | ~2021-09-05 | CT_ITS ---
EXAMINATION: CT lumbar spine wo con DATE: 09/05/2021 11:07 INDICATION: Low back pain. Coccygeal pain. Fall. TECHNIQUE: Computed tomography (CT) of the lumbar spine was performed without intravenous contrast. A utomated exposure control and iterative reconstruction technique were employed. The dose-length produ ct was 1609.68 mGy-cm. COMPARISON: CT abdomen and pelvis 04/19/2018 FINDINGS: The inferior poles of the kidneys are fused across the midline (horseshoe kidney). There is mild osteoarthritis of the hips. There is 3 degrees dextrocurvature of lumbar spine. Vertebral body heights are normal. There is mildly decreased disc height at L3-L4 and L5-S1 and moderately decreased disc height at L4-L5. The following disc levels are specifically discussed: L1-L2: The disc is bulging. There is mild bilateral facet joint osteoarthritis. There is mild bilater al neural foraminal stenosis. There is no central canal stenosis. L2-L3: The disc is bulging. There is mild bilateral facet joint osteoarthritis. There is mild bilater al neural foraminal stenosis. There is mild central canal stenosis. L3-L4: The disc is bulging. There is moderate bilateral facet joint osteoarthritis. There is moderate bilateral neural foraminal stenosis. There is moderate central canal stenosis. L4-L5: The disc is bulging. There is severe bilateral facet joint osteoarthritis. There is moderate b ilateral neural foraminal stenosis. There is mild central canal stenosis. There are changes of terminal supervisor ior decompression. L5-S1: The disc is bulging. There is mild bilateral facet joint osteoarthritis. There is moderate venkata ateral neural foraminal stenosis. There is mild central canal stenosis. There are changes of posterio r decompression. IMPRESSION: 1. No fracture. 2. Moderate lumbar spondylosis. Reviewed, dictated and finalized at location A.
[2021-09-05 10:20] VITALS: BP 147/79; PULSE 67; RESP 18; TEMP 36.6; O2SAT 98
--- NOTE | 2021-09-05 10:36 | ED.BACK ---
HPI - Back Pain/Injury General Chief Complaint: Back Pain/Injury Stated Complaint: back pain Time Seen by Provider: 09/05/21 10:36 History of Present Illness HPI Narrative: 66-year-old male with a history of Hypertension, dyslipidemia, BPH, back surgery fell 1 week ago and fell on his tailbone. Subsequently he has developed -- low back pain in the lumbar region with radiation to both buttocks and posterior thighs. -- No fever. No bladder or bowel involvement. No motor/ sensory loss. MD elicited complaint: back pain, back injury and fall Pertinent past history: back surgery Onset (ago): day(s) ( Fell 7 days ago.) Timing: intermittent Severity: moderate Similar Symptoms Previously: Yes Quality: dull and aching Location: lumbar spine Radiation: buttocks, left upper leg and right upper leg Exacerbating factors: movement Relieving factors: immobilization Associated symptoms: denies other symptoms Work related injury: No Related Data Home Medications Medication Instructions Recorded Confirmed amlodipine 2.5 mg tablet See Rx Instructions .Route .COMPLEX 07/19/19 09/05/21 aspirin 81 mg tablet,delayed 81 mg PO DAILY 07/19/19 09/05/21 release (Adult Low Dose Aspirin) rosuvastatin 10 mg tablet See Rx Instructions .Route .COMPLEX 07/19/19 09/05/21 tadalafil 5 mg tablet (Cialis) See Rx Instructions .Route .COMPLEX 07/19/19 09/05/21 tamsulosin 0.4 mg capsule See Rx Instructions .Route .COMPLEX 07/19/19 09/05/21 Allergies Allergy/AdvReac Type Severity Reaction Status Date / Time No Known Allergies Allergy Verified 07/19/19 08:50 Review of Systems Review of Systems: All systems reviewed & are unremarkable except as noted in HPI and below Constitutional: Constitutional: Reports as per HPI and Reports no additional constitutional complaints Eyes: Eyes: Reports as per HPI and Reports no additional eye complaints ENT: Reports system reviewed and no additional complaints, except as documented and Reports as per HPI Cardiovascular: Cardiovascular: Reports as per HPI and Reports no additional cardiovascular complaints Respiratory: Respiratory: Reports as per HPI and Reports no additional respiratory complaints Gastrointestinal: Gastrointestinal: Reports as per HPI and Reports no additional gastrointestinal complaints Genitourinary: Genitourinary: Reports no additional male genitourinary complaints and Reports as per HPI Musculoskeletal: Musculoskeletal: Reports no additional musculoskeletal complaints, Reports as per HPI and Reports back pain Comments: pain in lower lumbar region. Integumentary/Breasts: Skin/Breast: Reports system reviewed and no additional complaints, except as docu and Reports as per HPI Neurologic: Reports system reviewed and no additional complaints, except as documented and Reports as per HPI Psychiatric: Psychiatric: Reports no additional psychiatric complaints and Reports as per HPI Endocrine: Endocrine: Reports no additional endocrine complaints and Reports as per HPI Hematologic/Lymphatic: Hematologic/Lymphatic: Reports no additional hematologic/lymphatic complaints and Reports as per HPI Allergic/Immunologic: Allergic/Immunologic: Reports no additional allergic/immunologic complaints and Reports as per HPI [facility] Surgical History Surgical History (Updated 09/05/21 @ 11:24 by Jesus Peterson MD) Previous back surgery Exam Const: General: healthy appearing and no acute distress Nutritional Appearance: well nourished Orientation/consciousness: patient oriented x3 Limitations: no limitations HENMT: Head: normal to inspection Ears: external ears normal General nose exam: Normal external nose present and Normal nares present Face and sinus: normal facial exam and sinuses nontender Mouth: Yes Normal oral and palatal mucosa present and Yes lip normal Throat: posterior oropharynx normal Eyes: Conjunctivae: conjunctivae normal Pupils: Equal, round and reactive pupils present EOM: E
[2021-09-05 11:20] VITALS: BP 139/70; PULSE 61; RESP 14; O2SAT 98
[2021-09-05] MEDS: KETOROLAC 30 MG/ML VIAL (*BKC) IM (12:32)
[2021-09-05 12:35] VITALS: BP 130/69; PULSE 75; RESP 16; TEMP 36.7; O2SAT 99
== END 2021-09-05 12:35 | disposition home or self-care (01) ==
PROVIDERS: Emergency Provider Internal Medicine Critical Care Medicine; PCP Internal Medicine
DX: M47.816 Spondylosis without myelopathy or radiculopathy, lumbar region (principal); M54.50 Low back pain, unspecified; W19.XXXA Unspecified fall, initial encounter
CPT/HCPCS: 72131; 96372; 99284; J1885

== ENCOUNTER 2022-02-06 09:58 | Outpatient (CLI) | payer MEDICARE, BC, SELFPAY ==
--- NOTE | ~2022-02-06 | CT_ITS ---
EXAMINATION: CT lung screening DATE: 02/06/2022 10:15 INDICATION: Personal history of nicotine dependence, current smoker with 49 pack year history TECHNIQUE: Computed tomography (CT) of the chest was performed without intravenous contrast. The dose -length product (DLP) was 227.54 mGy-cm. Automated exposure control and iterative reconstruction tech FOUND[employer] were employed. COMPARISON: 01/17/2021 FINDINGS: There is mild emphysema. There is a 3 mm nodule of the right upper lobe. A 5 mm subpleural nodule is noted in the left lung apex. There is a 5 mm nodule of the minor fissure. The lungs are chris e of acute opacities. No pleural effusion or pneumothorax. No pathologically enlarged thoracic lymph nodes are identified. The heart size is normal. Bilateral gynecomastia is noted. There are coronary a rtery stents and atherosclerosis. There is moderate thoracic spondylosis. IMPRESSION: 1. Lung-RADS category 2: Benign appearance or behavior. Continue annual screening with noncontrast lo w-dose chest CT in 12 months. Reviewed, dictated and finalized at location A. 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 Lung-RADS category 2: Benign appearance or behavior. Continue annual screeni ng with noncontrast low-dose chest CT in 12 months.
== END 2022-02-06 09:59 | disposition home or self-care (01) ==
LOC: CHSIMG 09:59
PROVIDERS: PCP Internal Medicine; Visit Provider Internal Medicine
DX: Z12.2 Encounter for screening for malignant neoplasm of respiratory organs (principal); Z87.891 Personal history of nicotine dependence
CPT/HCPCS: 71271

== ENCOUNTER 2022-04-17 11:34 | Emergency (ER) | payer MEDICARE, BC, SELFPAY ==
[2022-04-17] VITALS (15 sets, daily range): BP systolic 116–144; BP diastolic 68–89; PULSE 54–62; RESP 11–19; TEMP 36.6; O2SAT 96–98
--- NOTE | ~2022-04-17 | XR_ITS ---
EXAMINATION: XR chest 1V portable 04/17/2022 12:27 INDICATION: Midsternal chest pain PROCEDURE: AP portable chest COMPARISON: Comparison to multiple prior studies sequentially, with oldest reviewed study dated 06/2016. FINDINGS: The lungs are clear. The cardiomediastinal silhouette is within normal limits. There are no pleural effusions. There is no pneumothorax suspected. IMPRESSION: 1: NO ACUTE CARDIOPULMONARY DISEASE. Reviewed, dictated and finalized at location B. 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
--- NOTE | 2022-04-17 11:47 | ED.CHESTPAIN ---
HPI - Chest Pain General Chief Complaint: Chest Pain Stated Complaint: chest pain Time Seen by Provider: 04/17/22 11:47 Source: patient Mode of arrival: ambulatory Limitations: no limitations History of Present Illness HPI narrative: 66 year male, smoker with a history of hypertension, dyslipidemia, emphysema, BPH, coronary artery disease status post stents in 2016,negative stress test on 11/15/2020 with an EF of 54% presents to the ER with a 3 week history of -- right-sided chest pain going across his entire chest for the last 3 weeks. Pain is unprovoked. No nausea/ vomiting. his current pain level is 0. -- Intermittent shortness of breath with decreased exercise capacity -- numbness and tingling of his hands -- decreased motivation to do things. MD complaint: chest pain Pertinent past history: coronary artery disease Onset (ago): week(s) ( started 3 weeks ago) Timing of current episode: episodic Prior episodes: Yes Onset: during rest Pain location: left chest and right chest Severity: mild Pain scale (0-10): 3 Quality: aching Relieving factors: nothing Exacerbating factors: nothing Associated symptoms: dyspnea Risk Factors Coronary artery disease risk factors: smoking history, hyperlipidemia and hypertension Thoracic aortic dissection risk factors: longstanding hypertension Related Data Home Medications Medication Instructions Recorded Confirmed amlodipine 2.5 mg tablet See Rx Instructions .Route .COMPLEX 07/19/19 04/17/22 aspirin 81 mg tablet,delayed 81 mg PO DAILY 07/19/19 04/17/22 release (Adult Low Dose Aspirin) rosuvastatin 10 mg tablet See Rx Instructions .Route .COMPLEX 07/19/19 04/17/22 tamsulosin 0.4 mg capsule See Rx Instructions .Route .COMPLEX 07/19/19 04/17/22 finasteride 5 mg tablet 5 mg PO DAILY 04/17/22 04/17/22 Allergies Allergy/AdvReac Type Severity Reaction Status Date / Time No Known Allergies Allergy Verified 04/17/22 11:44 Review of Systems Review of Systems: All systems reviewed & are unremarkable except as noted in HPI and below Constitutional: Constitutional: Reports as per HPI and Reports no additional constitutional complaints Eyes: Eyes: Reports as per HPI and Reports no additional eye complaints ENT: Reports system reviewed and no additional complaints, except as documented and Reports as per HPI Cardiovascular: Cardiovascular: Reports as per HPI, Reports no additional cardiovascular complaints and Reports chest pain Respiratory: Respiratory: Reports as per HPI and Reports dyspnea Gastrointestinal: Gastrointestinal: Reports as per HPI and Reports no additional gastrointestinal complaints Genitourinary: Genitourinary: Reports no additional male genitourinary complaints and Reports as per HPI Musculoskeletal: Musculoskeletal: Reports no additional musculoskeletal complaints and Reports as per HPI Integumentary/Breasts: Skin/Breast: Reports system reviewed and no additional complaints, except as docu and Reports as per HPI Neurologic: Reports system reviewed and no additional complaints, except as documented and Reports as per HPI Psychiatric: Psychiatric: Reports no additional psychiatric complaints and Reports as per HPI Endocrine: Endocrine: Reports no additional endocrine complaints and Reports as per HPI Hematologic/Lymphatic: Hematologic/Lymphatic: Reports no additional hematologic/lymphatic complaints and Reports as per HPI Allergic/Immunologic: Allergic/Immunologic: Reports no additional allergic/immunologic complaints and Reports as per HPI [facility] Past Medical History Medical History (Updated 04/17/22 @ 12:55 by Jesus Peterson MD) Coronary artery disease Hypertension Pulmonary nodules Treadmill stress test negative for angina pectoris Surgical History Surgical History (Updated 04/17/22 @ 12:14 by Jesus Peterson MD) H/O heart artery stent Previous back surgery Social History Social History (Updated 04/17/22 @ 12:14 by Jesus Peterson MD
--- NOTE | 2022-04-17 11:57 | ECG_ITS ---
Measurements Intervals [place] Rate: 60 P: 33 OK: 268 QRS: 42 QRSD: 105 T: 37 QT: 412 QTc: 413 Interpretive Statements SINUS RHYTHM WITH FIRST DEGREE AV BLOCK NONSPECIFIC T-WAVE ABNORMALITY ABNORMAL ECG NO PREVIOUS ECG AVAILABLE FOR COMPARISON Electronically Signed On 04-17-2022 12:58:17 CATERING ASSISTANT by Ney Bolanos M.D.
[2022-04-17 12:27] LABS: Basophils Absolute Auto 0.01 K/mm3 (0.00-0.10); Basophils Percent Auto 0.2 % (0.0-1.0); Eosinophils Absolute Auto 0.05 K/mm3 (0.02-0.50); Eosinophils Percent Auto 1.2 % (1.0-6.0); Hematocrit 42.2 % (37.0-46.0); Hemoglobin 13.9 g/dL (12.4-15.3); Immature Granulocyte Absolute 0.01 K/mm3 (0.00-0.00); Immature Granulocyte Percent A 0.2 % (0.0-0.0); Lymphocytes Absolute Auto 2.08 K/mm3 (1.10-4.50); Lymphocytes Percent Auto 48.6 % (18.0-42.0); Mean Corpuscular HGB Conc 32.9 g/dL (32.0-36.0); Mean Corpuscular Hemoglobin 29.8 pg (27.0-31.0); Mean Corpuscular Volume 90.4 fL (78.0-102.0); Monocytes Absolute Auto 0.29 K/mm3 (0.10-0.90); Monocytes Percent Auto 6.8 % (2.0-11.0); Neutrophils Absolute Auto 1.8 K/mm3 (1.7-7.2); Platelet Count Result 193 K/mm3 (150-420); Red Blood Count 4.67 M/mm3 (4.70-6.10); Red Cell Distribution Width 14.3 % (11.6-14.4); White Blood Count 4.3 K/mm3 (4.8-10.8)
[2022-04-17 12:44] LABS: D Dimer 0.19 mg/L (0.19-0.50); Partial Thromboplastin Time 27.8 SEC (23.90-30.70)
[2022-04-17 12:48] LABS: Alanine Aminotransferase 29 U/L (16-63); Albumin Level 3.7 g/dL (3.4-5.0); Alkaline Phosphatase 83 U/L (46-116); Anion Gap 5 mmol/L (8-16); Aspartate Amino Transferase 23 U/L (15-37); Bilirubin,Total 0.8 mg/dL (0.00-1.00); Blood Urea Nitrogen 12 mg/dL (7-18); Calcium 8.5 mg/dL (8.5-10.1); Carbon Dioxide 31 mmol/L (21-32); Chloride 107 mmol/L (98-108); Estimated CRCL calculation 73 ml/min; Estimated Glomerular Filt Rate > 60; Glucose 130 mg/dL (70-99); NT Pro B Type Natriuretic Pept 15 pg/mL (0-125); Osmolality Calculated 297 mOsm/kg (285-295); Potassium 3.6 mmol/L (3.5-5.1); Sodium 143 mmol/L (136-145); Thyroid Stimulating Hormone 0.91 uIU/mL (0.36-3.74); Total Protein 7.5 g/dL (6.4-8.2); Troponin I 17.6 ng/L (0.00-60.4)
--- NOTE | 2022-04-17 12:48 | PC.NURSE ---
ERP WAS AT BEDSIDE SPEAKING WITH PT. NAD NOTED. PT IS CURRENTLY TALKING ON CELL WITHOUT DISTRESS. PT IS AWAITING RESULTS AT THIS TIME. DENIES ANY NEEDS OR COMPLAINTS. WILL CONTINUE TO MONITOR.
== END 2022-04-17 13:00 | disposition home or self-care (01) ==
PROVIDERS: Emergency Provider Internal Medicine Critical Care Medicine; PCP Internal Medicine
DX: I10 Essential (primary) hypertension (principal); R07.89 Other chest pain; R06.02 Shortness of breath; E78.5 Hyperlipidemia, unspecified; J43.9 Emphysema, unspecified; I25.10 Atherosclerotic heart disease of native coronary artery without angina pectoris; Z79.82 Long term (current) use of aspirin
CPT/HCPCS: 36415; 71045; 80053; 83880; 84443; 84484; 85025; 85380; 85610; 85730; 93005; 99284

== ENCOUNTER 2022-05-19 07:52 | Emergency (ER) | payer MEDICARE, BC, SELFPAY ==
--- NOTE | ~2022-05-19 | XR_ITS ---
EXAMINATION: XR chest 1V portable INDICATION: Chest congestion TECHNIQUE: Portable AP chest at 0823 hours COMPARISON: 04/17/2022 FINDINGS: The lungs are free of acute opacities. No pleural effusion or pneumothorax. The cardiomedia stinal silhouette is normal. IMPRESSION: 1. No acute cardiopulmonary abnormality. Reviewed, dictated and finalized at location B.
[2022-05-19 07:52] VITALS: BP 137/71; PULSE 64; RESP 18; TEMP 36.8; O2SAT 95
--- NOTE | 2022-05-19 08:04 | ED.URI ---
HPI - URI/Sore Throat General Chief Complaint: Upper Respiratory Infection Stated Complaint: cough/congestion Time Seen by Provider: 05/19/22 08:03 Source: patient Mode of arrival: ambulatory Limitations: no limitations History of Present Illness HPI Narrative: 66-year-old male, smoker with history of hypertension, dyslipidemia, BPH, coronary artery disease status post stent in 2016, negative stress test on 11/15/2020, pulmonary nodules, emphysema presents to the ER with a 2 day history of -- hoarseness of voice -- nonproductive cough -- throat irritation -- nasal congestion MD elicited complaint: cough, sore throat and nasal congestion Pertinent past history: COPD Onset (ago): day(s) ( started 2 days ago) Consistency: constant Severity: moderate Able to tolerate fluids by mouth: Yes Exacerbating factors: nothing Relieving factors: nothing Associated symptoms: denies other symptoms, nasal congestion, sore throat and cough Related Data Home Medications Medication Instructions Recorded Confirmed amlodipine 2.5 mg tablet See Rx Instructions .Route .COMPLEX 07/19/19 05/19/22 aspirin 81 mg tablet,delayed 81 mg PO DAILY 07/19/19 05/19/22 release (Adult Low Dose Aspirin) rosuvastatin 10 mg tablet See Rx Instructions .Route .COMPLEX 07/19/19 05/19/22 tamsulosin 0.4 mg capsule See Rx Instructions .Route .COMPLEX 07/19/19 05/19/22 finasteride 5 mg tablet 5 mg PO DAILY 04/17/22 05/19/22 Allergies Allergy/AdvReac Type Severity Reaction Status Date / Time No Known Allergies Allergy Verified 04/17/22 11:44 Review of Systems Review of Systems: All systems reviewed & are unremarkable except as noted in HPI and below Constitutional: Constitutional: Reports as per HPI and Reports no additional constitutional complaints Eyes: Eyes: Reports as per HPI and Reports no additional eye complaints ENT: Reports system reviewed and no additional complaints, except as documented, Reports as per HPI, Reports change in voice, Reports hoarseness, Reports nasal congestion, Reports post nasal drip and Reports sore throat Cardiovascular: Cardiovascular: Reports as per HPI and Reports no additional cardiovascular complaints Respiratory: Respiratory: Reports as per HPI, Reports no additional respiratory complaints and Reports cough Gastrointestinal: Gastrointestinal: Reports as per HPI and Reports no additional gastrointestinal complaints Genitourinary: Genitourinary: Reports no additional male genitourinary complaints and Reports as per HPI Musculoskeletal: Musculoskeletal: Reports no additional musculoskeletal complaints and Reports as per HPI Integumentary/Breasts: Skin/Breast: Reports system reviewed and no additional complaints, except as docu and Reports as per HPI Neurologic: Reports system reviewed and no additional complaints, except as documented and Reports as per HPI Psychiatric: Psychiatric: Reports no additional psychiatric complaints and Reports as per HPI Endocrine: Endocrine: Reports no additional endocrine complaints and Reports as per HPI Hematologic/Lymphatic: Hematologic/Lymphatic: Reports no additional hematologic/lymphatic complaints and Reports as per HPI Allergic/Immunologic: Allergic/Immunologic: Reports no additional allergic/immunologic complaints and Reports as per HPI PMFSH Past Medical History Medical History Coronary artery disease Hypertension Pulmonary nodules Treadmill stress test negative for angina pectoris Surgical History Surgical History H/O heart artery stent Previous back surgery Social History Social History Social History: smoker Exam Const: General: cooperative, healthy appearing, comfortable and no acute distress HENMT: Head: normal to inspection, normocephalic and atraumatic Ears: hearing grossly normal bilater
[2022-05-19 08:44] LABS: Influenza A QL RT-PCR Negative (Negative); Influenza B QL RT-PCR Negative (Negative); RSV RNA, RT-PCR Negative (Negative); SARS-CoV-2 RNA PCR Negative (Negative)
[2022-05-19 09:17] VITALS: BP 137/71; PULSE 64; RESP 18; TEMP 36.8; O2SAT 98
== END 2022-05-19 09:18 | disposition home or self-care (01) ==
PROVIDERS: Emergency Provider Internal Medicine Critical Care Medicine; PCP Internal Medicine
DX: J43.9 Emphysema, unspecified (principal); J06.9 Acute upper respiratory infection, unspecified; I10 Essential (primary) hypertension; E78.5 Hyperlipidemia, unspecified; I25.10 Atherosclerotic heart disease of native coronary artery without angina pectoris; Z79.82 Long term (current) use of aspirin; Z20.822 Contact with and (suspected) exposure to COVID-19
CPT/HCPCS: 71045; 87637; 99283

== ENCOUNTER 2023-06-04 13:59 | Emergency (ER) | payer OTHER, SELFPAY ==
--- NOTE | ~2023-06-04 | CT_ITS ---
EXAMINATION: CT cervical spine wo con DATE: 06/04/2023 15:11 INDICATION: fall TECHNIQUE: Computed tomography (CT) of the cervical spine was performed without intravenous contrast. Automated exposure control and iterative reconstruction technique were employed. The dose-length pro duct was 646.28 mGy-cm. COMPARISON: None. FINDINGS: Vertebral Body Alignment: Intact. Mild reversed lordosis centered at C3-4. Craniocervical and atlantoaxial alignment: Moderate degenerative change. Alignment intact. Osseous structures/fracture: No evidence of a lytic or blastic process in the visualized spine. No e vidence of acute fracture. Cervical soft tissues: The paraspinal soft tissues planes are maintained. Degenerative changes: Multilevel moderate-severe degenerative disc disease. Multilevel mild facet art hropathy. Severe right neural foraminal narrowing at C4-5 secondary to degenerative changes. Moderate bilateral neural foraminal narrowing at C7-T1 secondary to degenerative changes. No severe central c anal narrowing. IMPRESSION: No acute fracture or traumatic malalignment in the cervical spine. Reviewed, dictated and finalized at location K.
--- NOTE | ~2023-06-04 | CT_ITS ---
EXAMINATION: CT brain wo con DATE: 06/04/2023 15:11 INDICATION: fall . TECHNIQUE: Computed tomography (CT) of the head was performed without intravenous contrast. The mA wa s adjusted according to patient size. Iterative reconstruction technique was employed. The dose-lengt h product was 605.33 mGy-cm. COMPARISON: 03/08/2018. FINDINGS: No acute intracranial hemorrhage or extra-axial fluid collection. No hydrocephalus, mass, or herniation. No acute ischemic infarct. Unremarkable dural venous sinus attenuation. No acute osseous abnormality. Right maxillary retention cyst/polyp, the remaining aerated spaces are clear. Mild atrophy and chronic white matter change. Atherosclerotic intracranial calcification. IMPRESSION: No acute intracranial process. Reviewed, dictated and finalized at location K.
[2023-06-04 14:02] VITALS: BP 150/93; PULSE 65; RESP 18; TEMP 36.8; O2SAT 99
--- NOTE | 2023-06-04 14:06 | ED.HEATRA ---
HPI - Head Injury General Chief complaint: Head Injury Stated complaint: fall Time Seen by Provider: 06/04/23 14:05 Source: patient Mode of arrival: ambulatory Limitations: no limitations History of Present Illness HPI Narrative: patient is a 67-year-old male with a fall walking on the street at work and fell onto his head. He did not lose consciousness but he did have near syncopal feeling. MD Complaint: head injury Onset (ago): hour(s) (2) Mechanism of Injury: fall and work related injury Place: work and outdoors Loss of Consciousness: no Location of injury: frontal Severity: mild Severity scale (1-10): 1 Quality: dull Radiation: none Other Injuries: none Context: on aspirin Associated symptoms: denies other symptoms Related Data Home Medications Medication Instructions Recorded Confirmed amlodipine 2.5 mg tablet 10 mg PO DAILY 07/19/19 06/04/23 aspirin 81 mg tablet,delayed 81 mg PO DAILY 07/19/19 06/04/23 release (Adult Low Dose Aspirin) rosuvastatin 10 mg tablet See Rx Instructions .Route .COMPLEX 07/19/19 06/04/23 tamsulosin 0.4 mg capsule See Rx Instructions .Route .COMPLEX 07/19/19 06/04/23 finasteride 5 mg tablet 5 mg PO DAILY 04/17/22 06/04/23 Allergies Allergy/AdvReac Type Severity Reaction Status Date / Time No Known Allergies Allergy Verified 06/04/23 14:01 Review of Systems Review of Systems: All systems reviewed & are unremarkable except as noted in HPI and below Constitutional: Constitutional: Reports no additional constitutional complaints Eyes: Eyes: Reports no additional eye complaints ENT: Reports system reviewed and no additional complaints, except as documented Cardiovascular: Cardiovascular: Reports no additional cardiovascular complaints Respiratory: Respiratory: Reports no additional respiratory complaints Gastrointestinal: Gastrointestinal: Reports no additional gastrointestinal complaints Genitourinary: Genitourinary: Reports no additional male genitourinary complaints Musculoskeletal: Musculoskeletal: Reports no additional musculoskeletal complaints Integumentary/Breasts: Skin/Breast: Reports system reviewed and no additional complaints, except as docu Neurologic: Reports system reviewed and no additional complaints, except as documented Psychiatric: Psychiatric: Reports no additional psychiatric complaints Endocrine: Endocrine: Reports no additional endocrine complaints Hematologic/Lymphatic: Hematologic/Lymphatic: Reports no additional hematologic/lymphatic complaints Allergic/Immunologic: Allergic/Immunologic: Reports no additional allergic/immunologic complaints PMFSH Past Medical History Medical History Coronary artery disease Hypertension Pulmonary nodules Treadmill stress test negative for angina pectoris Surgical History Surgical History H/O heart artery stent Previous back surgery Social History Social History Social History: smoker Exam Const: General: healthy appearing Nutritional Appearance: well nourished Orientation/consciousness: patient oriented x3 HENMT: Head: normal to inspection Ears: external ears normal Face/Nose/Sinus: Normal external nose present Eyes: Conjunctivae: conjunctivae normal Pupils: Equal, round and reactive pupils present EOM: EOMs intact bilaterally Neck: Neck: normal visual inspection Chest: Chest palpation & inspection: normal inspection of the chest Resp: Effort & Inspection: normal respiratory effort and not labored Auscultation: clear to auscultation bilaterally Cardio: Rate: regular rate Rhythm: regular rhythm Heart sounds: no murmurs GI: Inspection: non-distended GI Palp: Yes Soft to palpation and No Tenderness to palpation present (GI) Auscultation: normal bowel sounds : General: Yes bladder normal to palpation Back/Spine
--- NOTE | 2023-06-04 14:34 | PC.NURSE ---
Patient taken down to CT.
--- NOTE | 2023-06-04 14:50 | PC.NURSE ---
Patient back in room from CT.
[2023-06-04 15:00] VITALS: BP 135/75; PULSE 67; RESP 17; O2SAT 100
--- NOTE | 2023-06-04 15:25 | PC.NURSE ---
Patient has removed blood pressure cuff and monitor system. states he is more comfortable in the chair. States he is ready to go, Patient educated we are waiting on results of his scans.
[2023-06-04 15:50] VITALS: BP 133/73; PULSE 58; RESP 18; TEMP 36.9; O2SAT 98
== END 2023-06-04 15:50 | disposition home or self-care (01) ==
PROVIDERS: Emergency Provider Emergency Medicine; PCP Internal Medicine
DX: S09.90XA Unspecified injury of head, initial encounter (principal); W18.30XA Fall on same level, unspecified, initial encounter; Z79.82 Long term (current) use of aspirin; I25.10 Atherosclerotic heart disease of native coronary artery without angina pectoris; I10 Essential (primary) hypertension
CPT/HCPCS: 70450; 72125; 99284

== ENCOUNTER 2023-10-19 09:19 | Outpatient (CLI) | payer MEDICARE, BC, SELFPAY ==
--- NOTE | ~2023-10-19 | CT_ITS ---
EXAMINATION:CT lung screening DATE: 10/19/2023 09:35 INDICATION: Personal history of nicotine dependence. Current smoker with 51 pack year history. TECHNIQUE: Computed tomography (CT) of the chest was performed without intravenous contrast. Automate d exposure control and iterative reconstruction technique were employed. The dose-length product (DLP ) was 235.18 mGy-cm. COMPARISON: Chest CT 02/06/2022 FINDINGS: There is mild emphysema. There is mild atelectasis bilaterally. There is a stable 4 mm nodu le at the minor fissure. No pleural effusion. There is bilateral gynecomastia. The heart size is norm al. There are coronary artery calcifications. No pericardial effusion. There is a left chest wall pac er with leads in the right atrium and right ventricle. There is moderate thoracic spondylosis. IMPRESSION: 1. Lung-RADS category 2: Benign appearance or behavior. Continue annual screening with noncontrast lo w-dose chest CT in 12 months. Reviewed, dictated and finalized at location A. IMPRESSION: 1. Lung-RADS category 2: Benign appearance or behavior. Continue annual screeni ng with noncontrast low-dose chest CT in 12 months.
== END 2023-10-19 09:20 | disposition home or self-care (01) ==
LOC: CHSIMG 09:21
PROVIDERS: PCP Internal Medicine; Visit Provider Internal Medicine
DX: Z12.2 Encounter for screening for malignant neoplasm of respiratory organs (principal); Z87.891 Personal history of nicotine dependence
CPT/HCPCS: 71271

== ENCOUNTER 2023-12-21 11:56 | Outpatient (CLI) | payer MEDICARE, BC, SELFPAY ==
--- NOTE | ~2023-12-21 | XR_ITS ---
EXAMINATION: XR wrist RT min 3V DATE: 12/21/2023 12:51 INDICATION: Right hand pain. TECHNIQUE: 4 views of right wrist were obtained. COMPARISON: None. FINDINGS: Bone alignment is normal. No fracture. Joint spaces are normal. IMPRESSION: 1. Normal right wrist. Reviewed, dictated and finalized at location A. IMPRESSION: 1. Normal right wrist.
--- NOTE | ~2023-12-21 | XR_ITS ---
EXAMINATION: 1. XR wrist LT min 3V 2. XR hand LT min 3V DATE: 12/21/2023 12:51 INDICATION: Left hand pain. TECHNIQUE: 4 views of left wrist and 3 views of left hand were obtained. COMPARISON: None. FINDINGS: LEFT WRIST: Alignment is normal. No fracture. There is mild osteoarthritis of triscaphe joint and fir st carpometacarpal joint. There are numerous densities in the radial palmar soft tissues of the hand measuring up to 2 mm. LEFT HAND: Alignment is normal. No fracture. There is chronic deformity of tuft of fifth distal phala nx, likely from old trauma. There is mild osteoarthritis of first metacarpophalangeal joint. IMPRESSION: 1. Mild polyarticular osteoarthritis. 2. Numerous small densities in the radial palmar soft tissues of the hand, which may be foreign claribel s or dystrophic calcifications. Reviewed, dictated and finalized at location A. IMPRESSION: 1. Mild polyarticular osteoarthritis. 2. Numerous small densities in the radial palmar soft tissues of the hand, whic h may be foreign bodies or dystrophic calcifications.
--- NOTE | ~2023-12-21 | XR_ITS ---
XR hip LT min 2V 12/21/2023 12:50 Indication: Left hip pain Procedure: 2 views left hip Comparison: CT dated 04/19/2018 Findings: Moderate osteoarthritis of the left hip. No fracture, subluxation or dislocation. There are sclerotic lesions of the femur proximally. The smaller sclerotic lesion near the greater trochanter along the intertrochanteric line appears new compared with CT dated 04/19/2018. The larger sclerotic l esion located slightly inferiorly was present on prior CT, likely bone island. Impression: 1: Moderate osteoarthritis of the left hip. 2: Sclerotic lesions of the left femur proximally at least one of which appears new. Cannot exclude metastatic disease. Consider correlation with nuclear bone scan. Reviewed, dictated and finalized at location B. Impression: 1: Moderate osteoarthritis of the left hip. 2: Sclerotic lesions of the left femur proximally at least one of which appear s new. Cannot exclude metastatic disease. Consider correlation with nuclear bon e scan.
--- NOTE | ~2023-12-21 | XR_ITS ---
EXAMINATION: XR hand RT min 3V DATE: 12/21/2023 12:51 INDICATION: Right hand pain. TECHNIQUE: 3 views of right hand were obtained. COMPARISON: None. FINDINGS: Alignment is normal. There are old healed fractures of tuft of third distal phalanx and kelly physis of fifth metacarpal. There is mild osteoarthritis of first carpometacarpal joint and second an d fifth distal interphalangeal joints. IMPRESSION: 1. Mild polyarticular osteoarthritis. Reviewed, dictated and finalized at location A.
[2023-12-21 12:35] LABS: Basophils Absolute Auto 0.02 K/mm3 (0.00-0.10); Basophils Percent Auto 0.4 % (0.0-1.0); Eosinophils Absolute Auto 0.04 K/mm3 (0.02-0.50); Eosinophils Percent Auto 0.8 % (1.0-6.0); Hematocrit 43.9 % (37.0-46.0); Hemoglobin 14.6 g/dL (12.4-15.3); Immature Granulocyte Absolute 0.01 K/mm3 (0.00-0.00); Immature Granulocyte Percent A 0.2 % (0.0-0.0); Lymphocytes Absolute Auto 2.27 K/mm3 (1.10-4.50); Lymphocytes Percent Auto 45.6 % (18.0-42.0); Mean Corpuscular HGB Conc 33.3 g/dL (32-36); Mean Corpuscular Hemoglobin 28.7 pg (27.0-31.0); Mean Corpuscular Volume 86.4 fL (78.0-102.0); Monocytes Absolute Auto 0.43 K/mm3 (0.10-0.90); Monocytes Percent Auto 8.6 % (2.0-11.0); Neutrophils Absolute Auto 2.21 K/mm3 (1.70-7.20); Neutrophils Percent Auto 44.4 % (50.0-70.0); Platelet Count Result 231 K/mm3 (150-420); Red Blood Count 5.08 M/mm3 (4.70-6.10); Red Cell Distribution Width 13.6 % (11.6-14.4)
[2023-12-21 13:00] LABS: Alanine Aminotransferase 36 U/L (16-63); Albumin Level 3.8 g/dL (3.4-5.0); Alkaline Phosphatase 90 U/L (46-116); Anion Gap 7 mmol/L (4-12); Aspartate Amino Transferase 29 U/L (15-37); Bilirubin,Total 1.2 mg/dL (0.00-1.00); Blood Urea Nitrogen 11 mg/dL (7-18); Calcium 9.3 mg/dL (8.5-10.1); Carbon Dioxide 30 mmol/L (21-32); Chloride 107 mmol/L (98-108); Estimated Glomerular Filt Rate > 60; Glucose 96 mg/dL (70-99); Osmolality Calculated 297 mOsm/kg (285-295); Potassium 4.1 mmol/L (3.5-5.1); Sodium 144 mmol/L (136-145); Total Protein 7.3 g/dL (6.4-8.2)
[2023-12-21 13:10] LABS: CRP < 0.5 mg/dL (0.0-0.9)
[2023-12-21 13:34] LABS: Erythrocyte Sedimentation Rate 5 mm/hr (0-20)
[2023-12-21 15:32] LABS: Rheumatoid Factor Screen Negative (Negative)
[2023-12-25 12:17] LABS: Anti Cyclic Citrullinated Pept <16 UNITS
== END 2023-12-21 11:57 | disposition home or self-care (01) ==
LOC: CHSLAB 11:59
PROVIDERS: PCP Internal Medicine; Visit Provider Internal Medicine
DX: M79.672 Pain in left foot (principal); M79.641 Pain in right hand; M25.552 Pain in left hip; M19.042 Primary osteoarthritis, left hand; M19.041 Primary osteoarthritis, right hand; M16.11 Unilateral primary osteoarthritis, right hip; M89.9 Disorder of bone, unspecified
CPT/HCPCS: 36415; 73110; 73130; 73502; 80053; 85025; 85652; 86038; 86039; 86140; 86200; 86430

== ENCOUNTER 2023-12-27 07:12 | Outpatient (CLI) | payer MEDICARE, BC, SELFPAY ==
--- NOTE | ~2023-12-27 | US_ITS ---
EXAMINATION: US retroperitoneal comp DATE: 12/27/2023 07:38 INDICATION: Urinary retention TECHNIQUE: Multiple ultrasound grayscale images of the kidneys were obtained. COMPARISON: None. FINDINGS: The right kidney measures 11.3 x 5.0 x 4.6 cm. The left kidney measures 11.4 x 4.7 x 5.8 cm. The kidn eys demonstrate normal echogenicity. There is no hydronephrosis in either kidney. No stones identifi ed. The bladder is normal with calculated prevoid bladder volume of 49 mL and calculated postvoid diana dder volume of 12 mL.. IMPRESSION: 1. Normal kidneys without hydronephrosis. Reviewed, dictated and finalized at location A.
== END 2023-12-27 07:13 | disposition home or self-care (01) ==
LOC: CHSIMG 07:15
PROVIDERS: PCP Internal Medicine; Visit Provider Internal Medicine
DX: M25.541 Pain in joints of right hand (principal); M25.542 Pain in joints of left hand; M25.552 Pain in left hip; R33.9 Retention of urine, unspecified
CPT/HCPCS: 76770

== ENCOUNTER 2024-01-11 08:52 | Outpatient (CLI) | payer MEDICARE, BC, SELFPAY ==
--- NOTE | ~2024-01-11 | NM_ITS ---
EXAMINATION: NM bone scan whole body DATE: 01/11/2024 13:59 INDICATION: Chronic left hip and proximal femoral pain with lesions seen on prior x-ray. TECHNIQUE: 25.9 mCi Tc-99m HDP was administered intravenously. Delayed whole-body scintigrams were o btained. COMPARISON: Right femur MR dated 12/15/[address] abdomen pelvis dated 04/13/2007 FINDINGS: Mild likely degenerative joint centered uptake at the bilateral sternoclavicular and acromioclavicula r joints and at the sternomanubrial articulation. No other suspicious bone lesions identified. Specif ically no abnormal uptake associated with a chronic sclerotic bone island seen at the lateral subtroc hanteric left femur on prior MRI and CT. 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 IMPRESSION: 1. No abnormal uptake at the left hip or femur. Of note there is a sclerotic bone islands in the subt rochanteric left femur on prior imaging dating back to 2007 and could correlate with the reported les ion of concern on prior x-ray. 2. Horseshoe kidney. 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 No abnormal uptake at the left hip or femur. Of note there is a sclerotic gina ne islands in the subtrochanteric left femur on prior imaging dating back to 15 10 and could correlate with the reported lesion of concern on prior x-ray. 2. Horseshoe kidney.
== END 2024-01-11 08:53 | disposition home or self-care (01) ==
LOC: CHSIMG 08:54
PROVIDERS: PCP Internal Medicine; Visit Provider Internal Medicine
DX: M89.9 Disorder of bone, unspecified (principal); Q63.1 Lobulated, fused and horseshoe kidney
CPT/HCPCS: 78306; A9561

== ENCOUNTER 2024-12-05 07:18 | Outpatient (CLI) | payer MEDICARE, BC, SELFPAY ==
--- NOTE | ~2024-12-05 | CT_ITS ---
EXAMINATION:CT lung screening DATE: 12/05/2024 07:34 INDICATION: Personal history of nicotine dependence. TECHNIQUE: Computed tomography (CT) of the chest was performed without intravenous contrast. Automated exposure control and iterative reconstruction technique were employed. The dose-length product (DLP) was 169.83 mGy-cm. COMPARISON: Chest CT 10/19/2023 FINDINGS: The lungs demonstrate mild atelectasis. There is a stable 4 mm nodule in right upper lobe. There is a stable 4 mm nodule at minor fissure. No pleural effusion. The heart size is normal. There are coronary artery calcifications. No pericardial effusion. There is a left chest wall pacer with leads in the right atrium and right ventricle. There is bilateral gynecomastia. IMPRESSION: 1. Lung-RADS category 2: Benign appearance or behavior. Continue annual screening with noncontrast low-dose chest CT in 12 months. Reviewed, dictated and finalized at location E. IMPRESSION: 1. Lung-RADS category 2: Benign appearance or behavior. Continue annual screeni ng with noncontrast low-dose chest CT in 12 months.
--- OUTSIDE RECORDS SUMMARY | 2024-12-05 07:22 | XMS_ITS | Encounter Summary ---
Author Organization [facility] Address [address] [place] [address] Care Team Providers Care Client Services Director Name Role Phone Kindra Marcial MD Primary Care Provider [phone] Aura Moran APRN, AGENT TICKETING GATE-C Unavailable [phone] Don Hinojosa MD Unavailable [phone] Alisha Israel MD Unavailable [phone] Bridger Zaragoza MD Unavailable [phone] Sylvester Mike MD Unavailable [phone] Shae Dugan PA-C Unavailable [phone] Richi Tran MD Unavailable [phone] Aura Moran APRN, AGENT TICKETING GATE-C Unavailable Encounter Details Date Type Department Care Team (Late st Contact Info) Description 08/25/2010 Abstract [facility] [address] [place] [address] Don Hinojosa MD [address] [place] [address] Social History Tobacco Use Types Packs/Day Years Used Date Smoking Tobacco: Smoker, Current Status Unknown Alcohol Use Standard Drinks/Week Comments Yes 0 (1 standard drink = 0.6 oz pur e alcohol) Drinks daily. Sex and Gender Information Value Date Recorded Sex Assigned at Not on file Legal Sex Male 11:33 PM CDT Gender Identity Not on file Sexual Orientation Not on file Occupation Industry Job Start Date Job End Date [employer]/retired Not on file Not on file Not on joanne e documented as of this encounter Plan of Treatment Upcoming Encounters Date Type Department Care Team ([facility] st Contact Info) Description 01/06/2025 2:30 AM SURVEY CREW CHIEF Allied Health/Nurse Visit [facility] [address] [place] [address] Sylvester Mike MD [address] [place] [address] 02/05/2025 8:30 AM SURVEY CREW CHIEF Office Visit [facility] [address] [place] [phone] Aura Moran, EXTERMINATOR, AGENT TICKETING GATE-C [address] [facility] [address] [place] [phone] 04/03/2025 9:00 AM SURVEY CREW CHIEF Office Visit [facility] [address] [place] [address] Sylvester Mike MD [address] [place] [address] 04/03/2025 9:00 AM SURVEY CREW CHIEF Allied Health/Nurse Visit [facility] [address] [place] [address] Sylvester Mike MD [address] [place], [place] [address] documented as of this encounter Visit Diagnoses Not on filedocumented in this encounter Care Teams Client Services Director Relationship Specialty Start Date End Date Kindra Marcial MD [address] [place] [address] PCP - General INTERNAL MEDICINE 07/03/16 Aura Moran APRN, AGENT TICKETING GATE-C [address] [place], [place] [address] [place] [employer] Machine Operator NURSE PRACTITIONER 07/03/16 09/01/23 Don Hinojosa MD [address] [place], [place] [phone] [place] [employer] Machine Operator CARDIOVASCULAR DISEASE 07/26/16 09/01/23 Alisha Israel MD [facility] [place] [address] PULMONARY DISEASE 07/15/20 Bridger Zaragoza MD [facility] [place] [address] ORTHOPAEDICS 01/13/21 Sylvester Mike MD [address] [place] [address] Consulting Physician CLINICAL CARDIAC ELECTROPHYSIOLOGY 10/05/23 Shae Dugan PA-C [address] [place] [address] Referring Physician PHYSICIAN PICTURE FRAMES INSPECTOR 10/05/23 Richi Tran MD [address] [place] [address] Consulting Physician INTERVENTIONAL CARDIOLOGY 11/02/23 Aura Moran APRN, AGENT TICKETING GATE-C [address] [place] [phone] NURSE PRACTITIONER 11/02/23 documented as of this encounter
--- OUTSIDE RECORDS SUMMARY | 2024-12-05 07:22 | XMS_ITS | Encounter Summary ---
Author Organization [facility] Address [address] [place] [address] Care Team Providers Care Firer Powerhouse Name Role Phone Kindra Marcial MD Primary Care Provider [phone] Alisha Israel MD Unavailable [phone] Bridger Zaragoza MD Unavailable [phone] Sylvester Mike MD Unavailable [phone] Shae Dugan PA-C Unavailable [phone] Richi Tran MD Unavailable [phone] Aura Moran APRN FINANCIAL ANALYSIS MANAGER-C Unavailable Encounter Details Date Type Department Care Team (Late st Contact Info) Description 10/05/2023 Hospital Follow-up Call [facility] [address] [place] [address] Ene Larsen RN Social History Tobacco Use Types Packs/Day Years Used Date Smoking Tobacco: Every Day Cigarettes Last attempted to quit: 05/05/2019 Smokeless Tobacco: Current Chew Alcohol Use Standard Drinks/Week Comments Yes 0 (1 standard drink = 0.6 oz pur e alcohol) 3 per week B1300 Health Literacy Answer Date Recor ded How often do you need to hav e someone help you when you read instructions, pamphlets, or other written material from your doctor or pharmacy? Never 10/01/2023 [facility] Utilities Answer Date Recorded In the past 12 months has e Shop[employer], gas, oil, or water company threatened to shut off services in your home? No 10/01/2023 Humiliation, Afraid, Rape, and Kick questionnair e Answer Date Recorded Within the last year, have y ou been afraid of your partner or ex-partner? No 10/01/2023 Within the last year, have y ou been humiliated or emotionally abused in other ways by your partner or ex-partner? No Within the last year, have y ou been kicked, hit, slapped, or otherwise physically hurt by your partner or ex-partner? No 10/01/2023 Within the last year, have y ou been raped or forced to have any kind of sexual activity by your partner or ex-partner? No 10/01/2023 Social Connection and Isolation Panel [NHANES] A nswer Date Recorded In a typical week, how many times do you talk on the phone with family, friends, or neighbors? Three times a week 10/01/2023 How often do you get togethe r with friends or relatives? Three times a week 10/01/2023 How often do you attend chur or pentecostal services? Never 10/01/2023 Do you belong to any clubs o r organizations such as adventism groups, unions, fraternal or athletic groups, or school groups? No 10/01/2023 How often do you attend meet ings of the clubs or organizations you belong to? Never 10/01/2023 Are you , , di vorced, , never , or living with a partner? 10/01/2023 AUDIT-C Answer Date Recorded Q1: How often do you have a drink containing alc ohol? Monthly or less 10/01/2023 Q2: How many drinks containi ng alcohol do you have on a typical day when you are drinking? 1 or 2 10/01/2023 Q3: How often do you have si x or more drinks on one occasion? Never 10/01/2023 Overall Financial Resource Strain (CARDIA) Answe r Date Recorded How hard is it for you to pa y for the very basics like food, housing, medical care, and heating? Not hard at all 10/01/2023 [facility] Occupational Stress Questionnaire Answer Date Recorded Do you feel stress - tense, restless, nervous, or anxious, or unable to sleep at night because your mind is troubled all the time - these days? Not at all 10/01/2023 Exercise Vital Sign Answer Date Recorde d On average, how many days pe r week do you engage in moderate to strenuous exercise (like a brisk walk)? 0 days 10/01/2023 On average, how many minutes do you engage in exercise at this level? 0 min 10/01/2023 Hunger Vital Sign Answer Date Recorded Within the past 12 months, y ou worried that your food would run out before you got the money to buy more. Never true 10/01/19 24 Within the past 12 months, t he food you bought just didn't last and you didn't have money to get more. Never true 10/01/2023 PRAPARE - Transportation Answer Date Re corded In the past 12 months, has l ack of transportation kept you from medical appointments or from getting medications? No 06/2023 In the past 12 months, has l ack of transportation kept you from meetings, work, or from getting things needed for daily living? No 10/01/2023 Housing Stability Vital Sign Answer Je e Recorded In the last 12 months, was t here a time when you were not able to pay the mortgage or rent on time? No 10/01/2023 In the past 12 months, how m any times have you moved where you were living? 0 10/01/2023 At any time in the past 12 m [facility], were you homeless or living in a fci (including now)? No 10/01/2023 Sex and Gender Information Value Date Recorded Sex Assigned at Not on file Legal Sex Male 11:33 PM CDT Gender Identity Not on file Sexual Orientation Not on file Occupation Industry Job Start Date Job End Date [employer]/retired Not on file Not on file Not on joanne e Not on file Not on file Not on file Not on file documented as of this encounter Functional Status * Are you deaf or do you have serious difficulty hearing Answer Date of Assessment Author Status No 10/01/2023 4:58 PM CDT Gabi Leal RN Active * Are you blind or do you have serious difficulty seeing, even when wearing glasses? Answer Date of Assessment Author Status No 10/01/2023 4:58 PM Gabi Rabago RN Active * Do you have serious difficulty walking or climbing stairs? Answer Date of Assessment Author Status No 10/01/2023 4:58 PM Gabi Rabago RN Active * Do you have difficulty dressing or bathing? Answer Date of Assessment Author Status No 10/01/2023 4:58 PM Gabi Rabago RN Active * Because of a physical, mental, or emotional condition, do you have difficulty doing errands alone such as visiting a doctor's office or shopping? Answer Date of Assessment Author Status No 10/01/2023 4:58 PM Gabi Rabago RN Active documented as of this encounter Mental Status * Because of a physical, mental, or emotional condition, do you have serious difficulty concentrating, remembering, or making decisions? Answer Entry Date Author Status No 10/01/2023 4:58 PM Gabi Rabago RN Active documented in this encounter Plan of Treatment Upcoming Encounters Date Type Department Care Team (Late st Contact Info) Description 01/06/2025 2:30 AM METAL ANNEALER Allied Health/Nurse Visit [facility] [address] [place] [address] Sylvester Mike MD [address] [place] [address] 02/05/2025 8:30 AM METAL ANNEALER Office Visit [facility] [address] [place] [address] Aura Moran, ROTARY HELPER, FINANCIAL ANALYSIS MANAGER-C [address] [facility] [address] [place] [address] 04/03/2025 9:00 AM METAL ANNEALER Office Visit [facility] [address] [place] [address] Sylvester Mike MD [address] [place] [address] 04/03/2025 9:00 AM METAL ANNEALER Allied Health/Nurse Visit [facility] [address] [place] [address] Sylvester Mike MD [address] [place] [address] documented as of this encounter Visit Diagnoses Not on filedocumented in this encounter Care Teams Firer Powerhouse Relationship Specialty Start Date End Date Kindra Marcial MD [address] [place] [address] PCP - General INTERNAL MEDICINE 07/03/16 Alisha Israel MD [facility] [address] PULMONARY DISEASE 07/15/20 Bridger Zaragoza MD [facility] [address] [address] ORTHOPAEDICS 01/13/21 Sylvester Mike MD [address] [place] [address] Consulting Physician CLINICAL CARDIAC ELECTROPHYSIOLOGY 10/05/23 Shae Dugan PA-C [address] [place] [address] Referring Physician PHYSICIAN SECONDARY MARKET MANAGER 10/05/23 Richi Tran MD [address] [place] [address] Consulting Physician INTERVENTIONAL CARDIOLOGY 11/02/23 Aura Moran, ROTARY HELPER, FINANCIAL ANALYSIS MANAGER-C [address] [place] [address] [address] [place] [address] NURSE PRACTITIONER 11/02/23 documented as of this encounter
--- OUTSIDE RECORDS SUMMARY | 2024-12-05 07:22 | XMS_ITS | Clinical Summary ---
Author Organization [facility] Address [address] [place] [address] Care Team Providers Care Machine Lay Out Worker Name Role Phone Kindra Marcial MD Primary Care Provider [phone] Ashish HERNÁNDEZ MD, Don Wilde Unavailable Allergies No known active allergies Medications rosuvastatin (CRESTOR) 10 mg tablet Take 10 mg by mouth daily Active finasteride (PROSCAR) 5 mg tablet Take 5 mg by mouth daily Active aspirin 81 mg enteric coated tablet Take 81 mg by mouth daily Active cetirizine (ZyrTEC) 10 mg tablet Take 10 mg by mouth daily 1 Active tadalafiL (CIALIS) 5 mg tablet Take one tablet daily 6 Active oxyCODONE-aceta minophen (PERCOCET) 5-325 mg per tabletIndicatio ns:Pain Take 1-2 tablets every 4-6 hours as needed for pain 43 tablet 2 Active senna-docusate (PERICOLACE) 8.6-50 mg 1-2 times daily as needed for constipation 60 tablet 1 2 Active ondansetron (ZOFRAN) 4 mg tablet Take 1 tablet (4 mg total) by mouth every 8 (eight) hours as needed for nausea or vomiting 20 tablet 1 2 Active buPROPion XL (WELLBUTRIN XL) 300 mg 24 hr tablet 1 Active tamsulosin (FLOMAX) 0.4 mg extended release capsule 2 Active amLODIPine (NORVASC) 10 mg tablet 2 Active Active Problems Problem Noted Date Diagnosed Date Arthritis of right acromioclavicular joint 02/22 Overview (02/22/2021): Added automatically from request for surgery [id number] Biceps tendonitis, right 02/22/2021 Overview (02/22/2021): Added automatically from request for surgery [id number] Impingement syndrome of right shoulder Overview (02/22/2021): Added automatically from request for surgery [id number] Tear of right rotator cuff 02/22/2021 Overview (02/22/2021): Added automatically from request for surgery [id number] Benign prostatic hyperplasia 01/10/2021 Coronary artery disease 01/10/2021 Hyperlipidemia 01/10/2021 Hypertension 01/10/2021 PSVT (paroxysmal supraventricular tachycardia) 1 03/12/2020 Overview (01/10/2021): s/p AV hugh ablation Sleep apnea with use of cont inuous positive airway pressure (CPAP) 01/10/2021 Leg swelling 11/29/2020 S/P coronary artery stent placement 12/04/2016 S/P radiofrequency ablation operation for arrdarrent hmia 12/04/2016 Tobacco abuse 12/04/2016 Induratio penis plastica 10/12/2015 Complete tear of rotator cuff 02/14/2011 Arthralgia of shoulder 01/12/2011 Paroxysmal atrial fibrillation 01/13/2004 Overview (01/10/2021): rare Surgical History Surgery Date Site/Laterality Comments BACK SURGERY CORONARY STENT PLACEMENT KNEE SURGERY Right FOOT SURGERY SHOULDER SURGERY FINGER SURGERY Medical History Medical History Date Comments History of atrial fibrillation Coronary artery disease Hypertension Hypercholesteremia Family History Medical History Relation Name Comments Diabetes Brother Family history of diabetes mellitus - (Added by TW Conv) Diabetes Mother Family history of diabetes mellitus - (Added by TW Conv) Kidney disease Other Family histor y of kidney disease - (Added by WES Conv) Relation Name Status Comments Brother Mother Other Social History Tobacco Use Types Packs/Day Years Used Date Smoking Tobacco: Every Day Smokeless Tobacco: Never Sex and Gender Information Value Date Recorded Sex Assigned at Not on file Legal Sex Male 12:06 AM FISH NET STRINGER Gender Identity Not on file Sexual Orientation Not on file Obstetrics History Last Filed Vital Signs Vital Sign Reading Time Taken Comments Blood Pressure 123/73 08/15/2021 8:19 AM CDT Pulse 69 08/15/2021 8:19 AM CDT Temperature - - Respiratory Rate - - Oxygen Saturation - - Inhaled Oxygen Concentration - - Weight 114.8 kg (253 lb) 08/15/2021 8:19 AM CDT Height 195.6 cm (6' 5) 08/15/2021 8:19 AM CDT Body Mass Index 30 08/15/2021 8:19 AM CDT Plan of Treatment Not on file Insurance MEDICARE [facility] MEDICARE [facility] Care Teams Machine Lay Out Worker Relationship Specialty Start Date End Date Kindra Marcial MD [address] [place] [address] PCP - General 06/19/16 Don Hinojosa III, [place] [address] Contact Lens Polisher Cardiology 01/10/21
--- OUTSIDE RECORDS SUMMARY | 2024-12-05 07:22 | XMS_ITS | Clinical Summary ---
Author Organization [facility] Address [address] [place] [address] Phone Care Team Providers Care Moving Van Driver Name Role Phone Kindra Marcial MD Primary Care Provider [phone] Allergies No known active allergies Medications aspirin EC 81 MG Tablet Delayed Response Take 81 mg by mouth daily. Active rosuvastatin (CRESTOR) 10 MG Tablet Take 10 mg by mouth daily. Active amLODIPine (NORVASC) 10 MG TabletIndicatio ns:PER PATIENT, THEY DIDN'T FILL HIS RX CORRECTLY SO HE HAS BEEN USING 5 MG DAILY WITH GOOD CONTROL OF HIS MONITORED READINGS Take 5 mg by mouth daily. Indications: PER PATIENT, THEY DIDN'T FILL HIS RX CORRECTLY SO HE HAS BEEN USING 5 MG DAILY WITH GOOD CONTROL OF HIS MONITORED READINGS Active finasteride (PROSCAR) 5 MG Tablet Take 5 mg by mouth daily. Active oxyCODONE-aceta minophen (PERCOCET) 5-325 MG TabletIndicatio ns:Nontraumatic tear of rotator cuff, unspecified laterality, unspecified tear extent 1-2 tans q4-6 hr prn pain 33 Tablet 2 Active Additional Information Patient not taking.Reported on 08/11/2024 senna (senna) 8.6 MG Tablet Take 1 Tablet by mouth 2 times daily as needed for Constipation - 1st line. 30 Tablet 2 Active Additional Information Patient not taking.Reported on 08/11/2024 ondansetron (Zofran) 4 MG Tablet Take 1 Tablet by mouth every 8 hours as needed for Nausea - 1st line. 30 Tablet 01/18/202 2 Active Additional Information Patient not taking.Reported on 08/11/2024 tamsulosin (FLOMAX) 0.4 MG Capsule Take 0.4 mg by mouth 2 times daily. Active Acetaminophen-C odeine (TYLENOL WITH CODEINE #4 PO) Take 1 Tablet by mouth every 6 hours as needed. Active clopidogrel (PLAVIX) 75 MG Tablet Take 75 mg by mouth daily. Active Active Problems Problem Noted Date Diagnosed Date Spinal stenosis of lumbar re gion with neurogenic claudication 08/21/2024 Family History Medical History Relation Name Comments Diabetes Mother Relation Name Status Comments Father Other Mother Social History Tobacco Use Types Packs/Day Years Used Date Smoking Tobacco: Former Cigarettes 1 975 - 02/26/2021 Smokeless Tobacco: Current Chew Tobacco Cessation:Ready to Q uit: Not Asked; Counseling Given: Not Answered Alcohol Use Standard Drinks/Week Comments Yes 2 (1 standard drink = 0.6 oz pur e alcohol) Sexually Active Control Partners Comments Yes Female Sex and Gender Information Value Date Recorded Sex Assigned at Not on file Legal Sex Male 7:58 PM CDT Gender Identity Not on file Sexual Orientation Not on file Last Filed Vital Signs Vital Sign Reading Time Taken Comments Blood Pressure 119/75 08/21/2024 11:15 AM CDT Pulse 60 08/21/2024 11:15 AM CDT Temperature 36.1 C (97 F) 08/21/2024 11:15 AM CDT Respiratory Rate 14 08/21/2024 11:1 5 AM CDT Oxygen Saturation 96% 08/21/2024 11: 15 AM CDT Inhaled Oxygen Concentration - - Weight 118.3 kg (260 lb 14.4 oz) 08/21/2024 7:39 AM CDT Height 195.6 cm (6' 5) 08/21/2024 7:39 AM CDT Body Mass Index 30.94 08/21/2024 7:39 AM CDT Plan of Treatment Health Maintenance Due Date Last Done Comments Hepatitis C Virus (HCV) Screening 1955 Cologuard 1998 Colonoscopy 1998 Colorectal Cancer Screening 1998 Immunochemical Fecal Occult Blood 1998 AAA Screening Ultrasound 2018 Influenza Immunization (#1) 2024 10/0 04/2023, 12/15/2022, 11/24/2021, Additional history exists SARS-COV-2 Immunization ( season) 2024 11/29/2023, 11/25/2021, 12/27/2020, Additional history exists DTaP/Tdap/Td Immunization Discontinued 06/03/2018 TdaP Immunization Completed 06/03/2018 Hepatitis B Immunization Completed 019, 07/03/2018, 06/03/2018 Zoster Immunization Completed 12/17/2018, 9 Respiratory Syncytial Virus (RSV) Immunization (Adult) Completed 12/23/2022 Pneumococcal Immunization (50+ years) Completed 11/29/2023, 01/30/2022, 03/18/2015 Human Papillomavirus (HPV) Immunization Aged Out No longer eligible based on patient's age to complete this topic Meningococcal Immunization (ACWY) Aged Out No longer eligible based on patient's age to complete this topic Rotavirus Immunization Aged Out No lo nger eligible based on patient's age to complete this topic Medical Devices Implanted Type Area Publishing Specialist Device Identifier Shelf Expiration Date Model / Serial / Lot [place] Sut Swivelk [id number] Absb Sft Tis Biocmps - [id number] Implanted:Qty: 1 on 03/15/2021 by [facility] IMPLANT Right: Shoulder [employer] 10/27/2023 AR-2324BC C-2 / AR-2324BC C-2 / [id number] 3.9 Bc Loop 'N' Tack Tenodesis Implant System Implanted:Qty: 1 on 03/15/2021 by Brid[facility] Right: Shoulder [employer] 03/28/2022 AR-1665BC SL-39 / [id number]-[id number] SL-39 / [id number] Suture [place] Biocomposite Swivelock 3.9 X 17.9mm Implanted:Qty: 1 on 03/15/2021 by [facility] Right: Shoulder [employer] 08/25/2022 AR-2326BC C / AR-2326BC C / [id number] 2.6 [employer]ertak Suture [place], Triple Loaded Implanted:Qty: 1 on 03/15/2021 by Bridger Zaragoza MD at [facility] Right: Shoulder [employer] 12/26/2024 AR-3633 / AR-[id number] / [id number] Insurance MEDICARE Care Teams Moving Van Driver Relationship Specialty Start Date End Date Kindra Marcial MD [address] [place] [address] PCP - General Internal Medicine 03/10/21
--- OUTSIDE RECORDS SUMMARY | 2024-12-05 07:23 | XMS_ITS | Encounter Summary ---
Author Organization [facility] Address [address] [facility] [address] Phone Care Team Providers Care Pool Manager Name Role Phone Kindra Marcial MD Primary Care Provider [phone] Reason for Referral * Radiology Services (Routine) - Closed Specialty Diagnoses / Procedures Referred By Contac t Referred To Contact Radiology Diagnoses Pre-op testing Procedures EKG 12 LEAD Bridger Zaragoza MD Phone: tel: fax: Referral ID Status Reason Start Date Expiration Date Visits Re quested Visits Authorized [id number] Closed 03/09/2021 1 1 IRING MACHINE TENDER * Radiology Services (Routine) - Closed Specialty Diagnoses / Procedures Referred By Contac t Referred To Contact Radiology Diagnoses Pre-op testing Procedures XR CHEST 2 VIEWS Bridger Zaragoza MD Phone: tel: fax: Referral ID Status Reason Start Date Expiration Date Visits Re quested Visits Authorized [id number] Closed 03/09/2021 1 1 [place] MACHINE TENDER Encounter Details Date Type Department Care Team (Late st Contact Info) Description 03/09/2021 [facility] [place] [id number] Bridger Zaragoza MD [address] [place] [address], [address] [place] [address] Pre-op testing (Primary Dx) Social History Tobacco Use Types Packs/Day Years Used Date Smoking Tobacco: Former Cigarettes 1 975 - 02/26/2021 Smokeless Tobacco: Never Alcohol Use Standard Drinks/Week Comments Yes 2 (1 standard drink = 0.6 oz pur e alcohol) Sexually Active Control Partners Comments Yes Female Sex and Gender Information Value Date Recorded Sex Assigned at Not on file Legal Sex Male 7:58 PM CDT Gender Identity Not on file Sexual Orientation Not on file COVID-19 Exposure Response Date Recorded In the last month, have you been in contact with someone who was confirmed or suspected to have Coronavirus / COVID-19? No / Unsure 03/12/2021 9:11 AM DEHAIRING MACHINE TENDER documented as of this encounter Plan of Treatment Not on file documented as of this encounter Results * XR CHEST 2 VIEWS (03/10/2021 7:06 AM DEHAIRING MACHINE TENDER) Anatomical Region Laterality Modality Chest N/A Digital Radiogra phy 03/10/2021 8:34 AM DEHAIRING MACHINE TENDER Impressions 03/10/2021 8:37 AM DEHAIRING MACHINE TENDER IMPRESSION: No acute cardiopulmonary process is identified. Narrative 03/10/2021 8:37 AM DEHAIRING MACHINE TENDER EXAM DESCRIPTION: XR CHEST 2 VIEWS REASON FOR STUDY: Preoperative right shoulder surgery. History of smoker, coronary artery disease. TECHNIQUE: Frontal and lateral radiographic views of the chest acquired. COMPARISON: None. FINDINGS: LUNGS/PLEURA: Hyperinflation. No consolidation, pleural effusion or pneumothorax. HEART/MEDIASTINUM: Normal heart size. No pulmonary vascular congestion. HARDWARE/LINES/TUBES: None. BONES: No acute findings. OTHER: No other significant finding. THIS IS AN ELECTRONICALLY VERIFIED FINAL REPORT 03/10/2021 8:34 AM - Electronically signed by Bridger Navarro D.O. : Report ID: [id number] Reading Location: [id number] Procedure Note Bridger Navarro DO - 03/10/2021 EXAM DESCRIPTION: XR CHEST 2 VIEWS REASON FOR STUDY: Preoperative right shoulder surgery. History of smoker, coronary artery disease. TECHNIQUE: Frontal and lateral radiographic views of the chest acquired. COMPARISON: None. FINDINGS: LUNGS/PLEURA: Hyperinflation. No consolidation, pleural effusion or pneumothorax. HEART/MEDIASTINUM: Normal heart size. No pulmonary vascular congestion. HARDWARE/LINES/TUBES: None. BONES: No acute findings. OTHER: No other significant finding. THIS IS AN ELECTRONICALLY VERIFIED FINAL REPORT 03/10/2021 8:34 AM - Electronically signed by Bridger Navarro D.O. : Report ID: [id number] Reading Location: [id number] IMPRESSION: No acute cardiopulmonary process is identified. Bridger Zaragoza MD IMG DIAGNOSTIC ORDERABL ES Final Result * EKG 12 LEAD (03/10/2021 7:05 AM DEHAIRING MACHINE TENDER) Ventricular Rate BPM EXTERNAL EKG Atrial Rate BPM EXTERNAL EKG P-R Interval ms EXTERNAL EKG QRS Duration 98 ms EXTERNAL EKG Q-T Duration 380 ms EXTERNAL EKG QTC CALCULATION 374 ms EXTERNAL EKG P [place] degrees EXTERNAL EKG R [place] 71 degrees EXTERNAL EKG T [place] 78 degrees EXTERNAL EKG 03/10/2021 7:05 AM DEHAIRING MACHINE TENDER Impressions EXTERNAL EKG - 03/10/2021 8:48 AM DEHAIRING MACHINE TENDER Sinus rhythm with first degree AV block Comparison Summary: No serial comparison made Summary: Abnormal ECG Confirmed by Jacob Matute [id number] on 03/10/2021 8:48:47 AM Narrative Procedure Note Gala James MD - 03/10/2021 IMPRESSION: Sinus rhythm with first degree AV block Comparison Summary: No serial comparison made Summary: Abnormal ECG Confirmed by Jacob Matute [id number] on 03/10/2021 8:48:47 AM Bridger Zaragoza MD IMG ECG ORDERABLES Laurie jones Result EXTERNAL EKG documented in this encounter Visit Diagnoses Diagnosis Pre-op testing- Primary Preoperative examination, unspecified Pre-op testing Preoperative examination, unspecified Pre-op testing Preoperative examination, unspecified documented in this encounter Care Teams Pool Manager Relationship Specialty Start Date End Date Kindra Marcial MD [address] [place] [address] PCP - General Internal Medicine 03/10/21 documented as of this encounter
--- OUTSIDE RECORDS SUMMARY | 2024-12-05 07:23 | XMS_ITS | Encounter Summary ---
Author Organization [facility] Address [address] [facility] [place] [address] Phone Care Team Providers Care Site Acquisition Manager Name Role Phone Kindra Marcial MD Primary Care Provider [phone] Encounter Details Date Type Department Care Team (Late st Contact Info) Description 03/10/2021 [facility] [place] [address] Bridger Zaragoza MD [address] [place] [address], [address] [place] [address] Pre-op testing (Primary Dx) Social History Tobacco [...] COVID-19? No / Unsure 03/12/2021 9:11 AM ORTHODONTIC ASSISTANT documented as of this encounter Plan of Treatment Not on file documented as of this encounter Results * SARS-COV-2 BY MOLECULAR (03/12/2021 9:19 AM ORTHODONTIC ASSISTANT) SARSCOV2 NOT DETECTED (Referen ce Range for this test is Not Detected ) [facility] THERMOFISHER FAST DX 03/14/2021 7:26 PM ORTHODONTIC ASSISTANT [facility] Comment:This test was perfor med by a RT-PCR method. Other NASAL STRUCTURE / Unknown Non-Phlebotomy Collection / Unknown 03/12/2021 9:19 AM ORTHODONTIC ASSISTANT 03/12/2021 10:07 AM ORTHODONTIC ASSISTANT Narrative [facility] - 03/14/2021 7:26 PM ORTHODONTIC ASSISTANT Authorized Fact Sheets about this test for providers and patients are available at: https://www.fda.gov/medical-devices/hosfzpxoi-bnxwsybiwn-emmenxz-devices/emergen -us e-authorizations us Bridger Zaragoza MD MICROBIOLOGY - GENERAL ORDERABLES Final Result [facility] [address] [place] [address], documented in this encounter Visit Diagnoses Diagnosis Pre-op testing- Primary Preoperative examination, unspecified documented in this encounter Care Teams Site Acquisition Manager Relationship Specialty Start Date End Date Kindra Marcial MD [address] [place] [address] PCP - General Internal Medicine 03/10/21 documented as of this encounter
--- OUTSIDE RECORDS SUMMARY | 2024-12-05 07:23 | XMS_ITS | Encounter Summary ---
Author Organization [facility] Address [address] [place] [address] Phone Care Team Providers Care Bank Teller Machine Mechanic Name Role Phone Kindra Marcial MD Primary Care Provider [phone] Encounter Details Date Type Department Care Team (Late st Contact Info) Description 03/09/2021 [facility] 1 [place] [address] Hong Ordonez MD [address] [place] [address] Pre-op testing (Primary Dx) Social History Tobacco [...] COVID-19? No / Unsure 03/12/2021 9:11 AM AERONAUTICAL ENGINEERING TECHNOLOGIST documented as of this encounter Plan of Treatment Not on file documented as of this encounter Results * HEMOGLOBIN & HEMATOCRIT (H&H) (03/10/2021 6:48 AM AERONAUTICAL ENGINEERING TECHNOLOGIST) HEMOGLOBIN (HGB) 14.1 13.0 - 16.5 g/dL 03/10/2021 9:03 AM [facility] HEMATOCRIT (HCT) 44.6 38.0 - 50.0 % 03/10/2021 9:03 AM [facility] Blood Venipuncture / Unknown 03/10/2021 6:48 AM AERONAUTICAL ENGINEERING TECHNOLOGIST 03/10/2021 8:45 AM AERONAUTICAL ENGINEERING TECHNOLOGIST us Hong Ordonez MD HEMATOLOGY ORDERABLES Final R esult [facility] [address] [place] [address] * (ABNORMAL) BASIC METABOLIC PANEL W/ CALCIUM TOTAL (03/10/2021 6:48 AM AERONAUTICAL ENGINEERING TECHNOLOGIST) SODIUM 139 136 - 144 mmol/L 03/10/2021 9:08 AM [facility] POTASSIUM 4.1 3.5 - 5.1 mmol/L 03/10/2021 9:08 AM [facility] CHLORIDE 105 100 - 110 mmol/L 03/10/2021 9:08 AM [facility] CO2, VENOUS 26 22 - 32 mmol/L 03/10/2021 9:08 AM [facility] ANION GAP 12.1 8.0 - 20.0 mmol/L 03/10/2021 9:08 AM [facility] GLUCOSE 95 70 - 99 mg/dL 03/10/2021 9:08 AM [facility] BUN 8 8 - 23 mg/dL 03/10/2021 9:08 AM [facility] CREATININE, BLOOD 0.89 0.80 - 1.30 mg/dL 03/10/2021 9:08 AM [facility] BUN/CREATININE RATIO 9(L) 12 - 20 ratio 03/10/2021 9:08 AM [facility] CALCIUM 9.7 8.9 - 10.3 mg/dL 03/10/2021 9:08 AM AERONAUTICAL ENGINEERING TECHNOLOGIST [facility] GFR, EST. NONAFRICAN >60 >=60 03/10/2021 9:08 AM AERONAUTICAL ENGINEERING TECHNOLOGIST [facility] GFR, EST. >60 >=60 03/10/2021 9:08 AM AERONAUTICAL ENGINEERING TECHNOLOGIST [facility] Comment: Creatinine Clearance is the preferred criteria for selecting drug dose adjustments in renally impaired patients. The GFR is provided as additional pertinent clinical information. GFR is reported in mL/min/1.73 sq m. IS THE PATIENT REQUIRED TO BE FASTING? No 03/10/2021 9:08 AM AERONAUTICAL ENGINEERING TECHNOLOGIST [facility] Blood Venipuncture / Unknown 03/10/2021 6:48 AM AERONAUTICAL ENGINEERING TECHNOLOGIST 03/10/2021 8:43 AM AERONAUTICAL ENGINEERING TECHNOLOGIST us Hong Ordonez MD CHEMISTRY ORDERABLES Final Re sult [facility] [address] [place] [address] documented in this encounter Visit Diagnoses Diagnosis Pre-op testing- Primary Preoperative examination, unspecified documented in this encounter Care Teams Bank Teller Machine Mechanic Relationship Specialty Start Date End Date Kindra Marcial MD [address] [place] [address] PCP - General Internal Medicine 03/10/21 documented as of this encounter
== END 2024-12-05 07:19 | disposition home or self-care (01) ==
LOC: CHSIMG 07:20
PROVIDERS: PCP Internal Medicine
DX: Z12.2 Encounter for screening for malignant neoplasm of respiratory organs (principal); Z87.891 Personal history of nicotine dependence
CPT/HCPCS: 71271

== ENCOUNTER 2025-01-29 12:07 | Outpatient (CLI) | payer MEDICARE, BC, SELFPAY ==
--- NOTE | ~2025-01-29 | XR_ITS ---
EXAMINATION: XR chest 2V, 01/29/2025 12:20 HYBRID CORN BREEDER HISTORY: URI SYMPTOMS COMPARISON: No comparisons available. Technique: 2 views obtained. Findings: The lungs are clear, no effusion. No pneumothorax. Heart is normal size. Mediastinal and hilar contours are within normal limits. Bony thorax no acute abnormality. Left pacemaker Impression: No acute cardiopulmonary abnormality. Reviewed, dictated and finalized at location P. ID CORN BREEDER Impression: No acute cardiopulmonary abnormality.
[2025-01-29 12:29] LABS: Hematocrit 45.8 % (37.0-46.0); Hemoglobin 14.7 g/dL (12.4-15.3); Mean Corpuscular HGB Conc 32.1 g/dL (32-36); Mean Corpuscular Hemoglobin 28.2 pg (27.0-31.0); Mean Corpuscular Volume 87.9 fL (78.0-102.0); Platelet Count Result 218 K/mm3 (150-420); Red Blood Count 5.21 M/mm3 (4.70-6.10); White Blood Count 5.9 K/mm3 (4.8-10.8)
[2025-01-29 12:38] LABS: Anion Gap 9 mmol/L (4-12); Blood Urea Nitrogen 11 mg/dL (9-20); Calcium 9.2 mg/dL (8.4-10.2); Carbon Dioxide 28 mmol/L (22-30); Chloride 107 mmol/L (98-107); Estimated Glomerular Filt Rate 58; Glucose 100 mg/dL (65-110); Osmolality Calculated 297 mOsm/kg (285-295); Potassium 4.0 mmol/L (3.4-5.0); Sodium 144 mmol/L (137-145)
[2025-01-29 12:44] LABS: Strep Group A RT-PCR NOT DETECTED (Negative)
[2025-01-29 12:56] LABS: Influenza A QL RT-PCR Negative (Negative); Influenza B QL RT-PCR Negative (Negative); RSV RNA, RT-PCR Negative (Negative); SARS-CoV-2 RNA PCR Negative (Negative)
== END 2025-01-29 12:08 | disposition home or self-care (01) ==
PROVIDERS: PCP Internal Medicine; Visit Provider Internal Medicine
DX: J06.9 Acute upper respiratory infection, unspecified (principal)
CPT/HCPCS: 36415; 71046; 80048; 85027; 87637; 87651